=== PATIENT | male | born 1955 | race African-American/Black ===

== ENCOUNTER 2017-03-30 10:19 | Emergency (ER) | payer MEDICAID ==
[~2017-03-30] VITALS: Ht 175.3 cm; Wt 82.0 kg
[2017-03-30 10:39] VITALS: BP 121/79
== END 2017-03-30 17:14 | disposition left against medical advice (07) ==
LOC: ER 10:19
DX: M54.5 Low back pain (principal); Z53.21 Procedure and treatment not carried out due to patient leaving prior to being seen by health care provider
CPT/HCPCS: Z7610 ×2

== ENCOUNTER 2017-04-02 08:59 | Emergency (ER) | payer MEDICAID ==
[~2017-04-02] VITALS: Ht 175.3 cm; Wt 83.0 kg
[2017-04-02] MEDS ORDERED: NAP5EC PO (09:24)
[2017-04-02] MEDS ORDERED: ATEN50TA PO (09:25)
[2017-04-02] MEDS ORDERED: METF500T4 PO (09:25)
[2017-04-02] MEDS ORDERED: HYDR25TA PO (09:25)
[2017-04-02 10:28] VITALS: BP 119/72
[2017-04-02] MEDS ORDERED: TRAMADOL 50MG TABLET PO ONE (10:30)
[2017-04-02] MEDS ORDERED: KETOROLAC 60MG/2ML VIAL IM ONE (10:30)
== END 2017-04-02 10:40 | disposition home or self-care (01) ==
LOC: ER 08:59
DX: G89.29 Other chronic pain (principal); M54.5 Low back pain; F17.210 Nicotine dependence, cigarettes, uncomplicated; Z88.0 Allergy status to penicillin; Z88.8 Allergy status to other drugs, medicaments and biological substances; Z98.890 Other specified postprocedural states; Z71.6 Tobacco abuse counseling
CPT/HCPCS: 96372; 99283; 99406; J1885; Z7610

== ENCOUNTER 2017-06-06 12:45 | Emergency (ER) | payer MEDICAID ==
[~2017-06-06] VITALS: Ht 175.3 cm; Wt 80.0 kg
[~2017-06-06 12:45] MED LIST: ATEN50TA PO; HYDR25TA PO; METF500T4 PO; NAP5EC PO
[2017-06-06] MEDS ORDERED: ACETAMINOPHEN 325MG TABLET PO ONE (15:30)
[2017-06-06 15:43] VITALS: BP 145/82
== END 2017-06-06 15:50 | disposition home or self-care (01) ==
LOC: ER 12:58
DX: G89.29 Other chronic pain (principal); M25.562 Pain in left knee; I10 Essential (primary) hypertension; E11.9 Type 2 diabetes mellitus without complications; F17.200 Nicotine dependence, unspecified, uncomplicated; Z88.8 Allergy status to other drugs, medicaments and biological substances
CPT/HCPCS: 99283; J7030; Z7610

== ENCOUNTER 2017-10-22 11:58 | Emergency (ER) | payer MEDICAID ==
[~2017-10-22] VITALS: Ht 180.3 cm; Wt 79.0 kg
[~2017-10-22 11:58] MED LIST changes: -ATEN50TA PO; -NAP5EC PO
[2017-10-22 14:30] VITALS: BP 146/86
[2017-10-22] MEDS ORDERED: IBUPROFEN 800MG TABLET PO ONE (14:30)
== END 2017-10-22 15:19 | disposition home or self-care (01) ==
LOC: ER 12:27
DX: M17.12 Unilateral primary osteoarthritis, left knee (principal); G89.29 Other chronic pain; E11.9 Type 2 diabetes mellitus without complications; I10 Essential (primary) hypertension; Z79.84 Long term (current) use of oral hypoglycemic drugs; Z79.899 Other long term (current) drug therapy; Z88.0 Allergy status to penicillin
CPT/HCPCS: 73562; 99284

== ENCOUNTER 2017-11-27 11:01 | Emergency (ER) | payer MEDICAID ==
[~2017-11-27] VITALS: Ht 180.3 cm; Wt 79.0 kg
[2017-11-27] MEDS ORDERED: ACETAMINOPHEN 325MG TABLET PO ONE (12:30)
[2017-11-27] MEDS ORDERED: KETOROLAC 60MG/2ML VIAL IM ONE (12:30)
[2017-11-27 13:37] VITALS: BP 157/99
== END 2017-11-27 15:29 | disposition home or self-care (01) ==
LOC: ER 15:07
DX: M17.12 Unilateral primary osteoarthritis, left knee (principal); I10 Essential (primary) hypertension; E11.9 Type 2 diabetes mellitus without complications; F17.200 Nicotine dependence, unspecified, uncomplicated; Z88.0 Allergy status to penicillin; Z88.8 Allergy status to other drugs, medicaments and biological substances; Z79.84 Long term (current) use of oral hypoglycemic drugs
CPT/HCPCS: 73562; 82962; 96372; 99284; J1885

== ENCOUNTER 2018-01-09 11:43 | Emergency (ER) | payer MEDICAID ==
[~2018-01-09] VITALS: Ht 180.3 cm; Wt 77.0 kg
[~2018-01-09 11:43] MED LIST changes: -METF500T4 PO; +METF500T6 PO
[2018-01-09 12:34] LABS: EOSINOPHILS % 9.5 % (0.0-5.0); HEMATOCRIT. 40.6 % (42.0-52.0); HEMOGLOBIN. 13.2 g/dL (14.0-18.0); LYMPHOCYTES % 37.4 % (20.0-50.0); MEAN CORPUSCULAR HEMOGLOBIN 28.2 pg (28.0-32.0); MEAN CORPUSCULAR VOLUME 86.9 fL (80.0-94.0); MEAN PLATELET VOLUME 8.2 fl (7.4-10.4); MONOCYTES % 10.5 % (2.0-8.0); NEUTROPHILS % 41.6 % (40.0-76.0); PLATELET 249 x1000/uL (130-400); RED BLOOD CELL COUNT 4.67 mill/uL (4.7-6.1); RED CELL DISTRIBUTION WIDTH 14.7 % (11.6-14.6)
[2018-01-09 12:36] LABS: CHLORIDE 102 mEq/L (98-107)
[2018-01-09 12:39] LABS: PARTIAL THROMBOPLASTIN TIME 24.1 sec (23.4-31.0); PROTHROMBIN TIME 10.3 sec (9.4-11.6)
[2018-01-09 12:47] LABS: CREATINE KINASE 303 IU/L (39-308)
[2018-01-09 12:50] LABS: CREATINE KINASE MB FRACTION 3.5 ng/mL (0.5-3.6)
[2018-01-09 13:01] LABS: CLARITY URINE CLEAR (CLEAR); COLOR URINE DARK YELLOW (YELLOW); KETONES URINE TRACE (NEGATIVE); LEUKOCYTE ESTERASE URINE NEGATIVE (NEGATIVE); NITRITE URINE NEGATIVE (NEGATIVE); OCCULT BLOOD URINE NEGATIVE (NEGATIVE); PH URINE 6.5 (4.5-8.0); PROTEIN URINE NEGATIVE (NEGATIVE); SPECIFIC GRAVITY URINE 1.021 (1.005-1.030)
[2018-01-09] MEDS ORDERED: SODIUM CHLORIDE 0.9% 1,000 ML IV ONE (13:26)
[2018-01-09] MEDS ORDERED: MORPHINE SULFATE 4 MG/ML CPJ (NOT FOR IM USE) IV STA (13:26)
[2018-01-09] MEDS ORDERED: ONDANSETRON HCL 4MG/2ML VIAL IV STA (13:26)
[2018-01-09 13:40] LABS: *BARBITURATES SCREEN URINE NEGATIVE (NEGATIVE); *BENZODIAZEPINES SCREEN URINE NEGATIVE (NEGATIVE); *COCAINE SCREEN URINE NEGATIVE (NEGATIVE); METHADONE URINE SCREEN NEGATIVE (NEGATIVE); OPIATES URINE SCREEN NEGATIVE (NEGATIVE)
[2018-01-09 13:41] LABS: *AMPHETAMINES SCREEN URINE NEGATIVE (NEGATIVE); CANNABINOID URINE SCREEN NEGATIVE (NEGATIVE); PHENCYCLIDINE URINE SCREEN NEGATIVE (NEGATIVE)
[2018-01-09 16:38] VITALS: BP 134/85
== END 2018-01-09 16:47 | disposition home or self-care (01) ==
LOC: ER 13:44
DX: R51 Headache (principal); R42 Dizziness and giddiness; R11.0 Nausea; E11.9 Type 2 diabetes mellitus without complications; I10 Essential (primary) hypertension; R56.9 Unspecified convulsions; R06.02 Shortness of breath; Z88.0 Allergy status to penicillin; Z88.6 Allergy status to analgesic agent; Z86.73 Personal history of transient ischemic attack (TIA), and cerebral infarction without residual deficits
CPT/HCPCS: 36415; 70450; 80053; 80305; 81003; 82550; 82553; 82962; 83690; 83880; 84484; 85025; 85610; 85730; 93005; 96361; 96374; 96375; 99285; J2270; J2405; J7030

== ENCOUNTER 2018-01-22 12:16 | Emergency (ER) | payer MEDICAID ==
[~2018-01-22] VITALS: Ht 180.3 cm; Wt 79.0 kg
[2018-01-22 12:22] VITALS: BP 146/92
== END 2018-01-22 15:35 | disposition left against medical advice (07) ==
LOC: ER 12:16
DX: Z53.21 Procedure and treatment not carried out due to patient leaving prior to being seen by health care provider (principal); E11.9 Type 2 diabetes mellitus without complications; I10 Essential (primary) hypertension; R56.9 Unspecified convulsions; F17.200 Nicotine dependence, unspecified, uncomplicated; Z88.0 Allergy status to penicillin; Z88.8 Allergy status to other drugs, medicaments and biological substances; Z86.73 Personal history of transient ischemic attack (TIA), and cerebral infarction without residual deficits; Z98.890 Other specified postprocedural states

== ENCOUNTER 2018-02-03 13:18 | Emergency (ER) | payer MEDICAID ==
[~2018-02-03] VITALS: Ht 180.3 cm; Wt 79.0 kg
[2018-02-03] MEDS ORDERED: ACETAMINOPHEN 325MG TABLET PO ONE ×2 (15:00→15:45)
[2018-02-03] MEDS ORDERED: LIDOCAINE HCL/EPINEPHRINE 1%-EPI 1:100,000 20 ML VIAL INFIL ONE (15:00)
[2018-02-03 15:51] LABS: CLARITY URINE CLEAR (CLEAR); COLOR URINE DARK YELLOW (YELLOW); KETONES URINE NEGATIVE (NEGATIVE); LEUKOCYTE ESTERASE URINE NEGATIVE (NEGATIVE); NITRITE URINE NEGATIVE (NEGATIVE); OCCULT BLOOD URINE NEGATIVE (NEGATIVE); PH URINE 5.5 (4.5-8.0); PROTEIN URINE NEGATIVE (NEGATIVE); SPECIFIC GRAVITY URINE 1.024 (1.005-1.030)
[2018-02-03 16:12] VITALS: BP 120/80
== END 2018-02-03 16:14 | disposition home or self-care (01) ==
LOC: ER 14:50
DX: G89.29 Other chronic pain (principal); M54.5 Low back pain; R35.0 Frequency of micturition; I10 Essential (primary) hypertension; F17.200 Nicotine dependence, unspecified, uncomplicated; E11.9 Type 2 diabetes mellitus without complications; Z79.84 Long term (current) use of oral hypoglycemic drugs; Z86.73 Personal history of transient ischemic attack (TIA), and cerebral infarction without residual deficits; Z88.0 Allergy status to penicillin; Z88.8 Allergy status to other drugs, medicaments and biological substances
CPT/HCPCS: 81003; 99283; J3490

== ENCOUNTER 2018-02-04 09:40 | Emergency (ER) | payer MEDICAID ==
[~2018-02-04] VITALS: Ht 177.8 cm; Wt 79.0 kg
[2018-02-04] MEDS ORDERED: HYDROCODONE/ACETAMINOPHEN 5/325MG TABLET PO ONE (12:15)
[2018-02-04 12:48] VITALS: BP 128/81
== END 2018-02-04 12:49 | disposition home or self-care (01) ==
LOC: ER 09:40
DX: G89.29 Other chronic pain (principal); M54.5 Low back pain; E11.9 Type 2 diabetes mellitus without complications; I10 Essential (primary) hypertension; F17.200 Nicotine dependence, unspecified, uncomplicated; F19.10 Other psychoactive substance abuse, uncomplicated; Z86.73 Personal history of transient ischemic attack (TIA), and cerebral infarction without residual deficits; Z88.0 Allergy status to penicillin; Z88.8 Allergy status to other drugs, medicaments and biological substances
CPT/HCPCS: 99283

== ENCOUNTER 2018-04-09 10:50 | Emergency (ER) | payer MEDICAID ==
[~2018-04-09] VITALS: Ht 180.3 cm; Wt 79.0 kg
[~2018-04-09 10:50] MED LIST changes: +METF-414 PO; -METF500T6 PO
[2018-04-09] MEDS ORDERED: SODIUM CHLORIDE 0.9% 1,000 ML IV ONE (11:16)
[2018-04-09] MEDS ORDERED: MECLIZINE 25MG TABLET PO ONE (11:30)
[2018-04-09 11:41] LABS: BASOPHILS % 0.9 % (0.0-2.0); EOSINOPHILS % 7.8 % (0.0-5.0); HEMATOCRIT. 42.4 % (42.0-52.0); HEMOGLOBIN. 13.9 g/dL (14.0-18.0); LYMPHOCYTES % 30.1 % (20.0-50.0); MEAN PLATELET VOLUME 8.7 fl (7.4-10.4); MONOCYTES % 8.7 % (2.0-8.0); NEUTROPHILS % 52.5 % (40.0-76.0); PLATELET 206 x1000/uL (130-400); RED BLOOD CELL COUNT 4.98 mill/uL (4.7-6.1); RED CELL DISTRIBUTION WIDTH 14.2 % (11.6-14.6)
[2018-04-09 11:47] LABS: CHLORIDE 103 mEq/L (98-107)
[2018-04-09 11:52] LABS: PARTIAL THROMBOPLASTIN TIME 24.7 sec (23.4-31.0); PROTHROMBIN TIME 9.8 sec (9.1-11.1)
[2018-04-09 12:55] VITALS: BP 140/89
== END 2018-04-09 12:57 | disposition home or self-care (01) ==
LOC: ER 10:50
DX: H81.10 Benign paroxysmal vertigo, unspecified ear (principal); E11.9 Type 2 diabetes mellitus without complications; I10 Essential (primary) hypertension; F17.200 Nicotine dependence, unspecified, uncomplicated; Z86.73 Personal history of transient ischemic attack (TIA), and cerebral infarction without residual deficits; Z88.0 Allergy status to penicillin; Z79.899 Other long term (current) drug therapy
CPT/HCPCS: 36415; 70450; 71045; 80053; 84484; 85025; 85610; 85730; 93005; 96360; 99285; J7030; J8597

== ENCOUNTER 2018-05-09 11:15 | Inpatient (IN) | payer MEDICAID ==
[~2018-05-09] VITALS: Ht 180.3 cm; Wt 64.9 kg
[2018-05-09] MEDS ORDERED: SODIUM CHLORIDE 0.9% 1,000 ML IV ONE (11:41)
[2018-05-09] MEDS ORDERED: ONDANSETRON HCL 4MG/2ML INJ IV STA (11:41)
[2018-05-09] MEDS ORDERED: MORPHINE SULFATE 4 MG/ML CPJ (NOT FOR IM USE) IV STA (11:41)
[2018-05-09] MEDS ORDERED: ASPIRIN 81MG TABLET PO ONE (11:45)
[2018-05-09] MEDS ORDERED: NITROGLYCERIN OINT 1GM/INCH UDPKT TD ONE (11:45)
[2018-05-09] MEDS ORDERED: NITROGLYCERIN 0.4MG TABLET SL SL PRN (11:45)
[2018-05-09 12:25] LABS: BASOPHILS % 0.9 % (0.0-2.0); EOSINOPHILS % 9.2 % (0.0-5.0); HEMATOCRIT. 39.7 % (42.0-52.0); HEMOGLOBIN. 12.9 g/dL (14.0-18.0); LYMPHOCYTES % 37.3 % (20.0-50.0); MEAN CORPUSCULAR HEMOGLOBIN 27.6 pg (28.0-32.0); MEAN PLATELET VOLUME 8.6 fl (7.4-10.4); MONOCYTES % 11.4 % (2.0-8.0); NEUTROPHILS % 41.2 % (40.0-76.0); PLATELET 205 x1000/uL (130-400); RED BLOOD CELL COUNT 4.67 mill/uL (4.7-6.1)
[2018-05-09 12:34] LABS: PARTIAL THROMBOPLASTIN TIME 24.5 sec (23.4-31.0); PROTHROMBIN TIME 9.9 sec (9.1-11.1)
[2018-05-09 12:37] LABS: CHLORIDE 104 mEq/L (98-107)
[2018-05-09] MEDS ORDERED: ACETAMINOPHEN 325MG TABLET PO PRN (15:45)
[2018-05-09] MEDS ORDERED: LORAZEPAM 2MG/ML CPJ IV PRN (15:45)
[2018-05-09] MEDS ORDERED: MAGNESIUM/ALUMINUM HYDROXIDE/SIMETHICONE 30ML UDC PO PRN (15:45)
[2018-05-09] MEDS ORDERED: IPRATROPIUM/ALBUTEROL 0.5-3(2.5)MG/3ML NEB INH PRN (15:45)
[2018-05-09] MEDS ORDERED: DOCUSATE SODIUM 100MG CAPSULE PO PRN (15:45)
[2018-05-09] MEDS ORDERED: POTASSIUM CHLORIDE 20MEQ TABLET SR PO SCH (16:00)
[2018-05-09] MEDS ORDERED: POTASSIUM CHLORIDE 20MEQ TABLET SR PO ONE (16:00)
[2018-05-09 16:10] LABS: PHOSPHORUS 2.8 mg/dL (2.5-4.9)
[2018-05-09 17:10] VITALS: BP 129/84
[2018-05-09] MEDS ORDERED: MELA10CA MT (17:10)
[2018-05-09] MEDS ORDERED: QUET25TA MT (17:10)
[2018-05-09] MEDS ORDERED: DIVA500T3 MT (17:10)
[2018-05-09] MEDS ORDERED: DEXTROSE 50% WATER 50ML SYRINGE IV PRN (18:30)
[2018-05-09 19:10] VITALS: BP 129/84
[2018-05-09] MEDS: HYDROCODONE/ACETAMINOPHEN 5/325MG TABLET PO PRN (19:43)
[2018-05-09 20:04] VITALS: BP 116/72
[2018-05-09] MEDS: MORPHINE SULFATE 4 MG/ML CPJ (NOT FOR IM USE) IV PRN (21:00)
[2018-05-09] MEDS: QUETIAPINE FUMARATE 25MG TABLET PO SCH (21:00)
[2018-05-09] MEDS: INSULIN LISPRO 100 UNITS/ML SUBCUT SCH (21:00)
[2018-05-09] MEDS: BLOOD SUGAR DIAGNOSTIC STRIP TEST SCH (21:00)
[2018-05-10] VITALS (7 sets, daily range): BP systolic 118–165; BP diastolic 56–102
[2018-05-10] MEDS: MORPHINE SULFATE 4 MG/ML CPJ (NOT FOR IM USE) IV PRN ×3 (05:22→17:00)
[2018-05-10] MEDS: BLOOD SUGAR DIAGNOSTIC STRIP TEST SCH ×4 (07:40→20:47)
[2018-05-10] MEDS: INSULIN LISPRO 100 UNITS/ML SUBCUT SCH ×4 (08:10→20:53)
[2018-05-10] MEDS: HYDROCHLOROTHIAZIDE 25MG TABLET PO SCH (08:44)
[2018-05-10] MEDS: ASPIRIN 81MG EC TABLET PO SCH (08:45)
[2018-05-10] MEDS ORDERED: ASPIRIN 81MG EC TABLET PO SCH (09:00)
[2018-05-10] MEDS ORDERED: MEDICATION NOT ON FORMULARY EA (Divalproex Sodium (Depakote) 500 MG) MT SCH (09:00)
[2018-05-10] MEDS ORDERED: HYDROCHLOROTHIAZIDE 25MG TABLET PO SCH (09:00)
[2018-05-10] MEDS: DIVALPROEX SODIUM 250MG DR TABLET PO SCH ×2 (09:56→18:14)
[2018-05-10] MEDS ORDERED: NA PHOS,M-B/NA PHOS,DI-BA ENEMA 118ML PR NR (12:15)
[2018-05-10] MEDS: AMLODIPINE 2.5MG TABLET PO SCH ×2 (12:30→20:47)
[2018-05-10] MEDS ORDERED: POTASSIUM CHLORIDE 20MEQ TABLET SR PO NR (12:30)
[2018-05-10] MEDS: DOCUSATE SODIUM 100MG CAPSULE PO SCH ×2 (12:30→18:14)
[2018-05-10] MEDS ORDERED: BISACODYL 10MG SUPP PR PRN (14:15)
[2018-05-10] MEDS ORDERED: MAGNESIUM HYDROXIDE 400MG/5ML 30ML UDC PO PRN (14:15)
[2018-05-10] MEDS ORDERED: BISACODYL 5MG TABLET PO PRN (14:15)
[2018-05-10] MEDS ORDERED: DIATR MEGLU/DIATRIZOATE SOLN 30ML PO NR ×2 (15:15→16:30)
[2018-05-10] MEDS ORDERED: DIATR MEGLU/DIATRIZOATE SOLN 30ML PO ONE (15:15)
[2018-05-10] MEDS: CLONIDINE 0.1MG TABLET PO PRN (18:28)
[2018-05-10] MEDS: QUETIAPINE FUMARATE 25MG TABLET PO SCH (20:47)
[2018-05-11 03:57] VITALS: BP 173/105
[2018-05-11] MEDS: CLONIDINE 0.1MG TABLET PO PRN (03:59)
[2018-05-11] MEDS: MORPHINE SULFATE 4 MG/ML CPJ (NOT FOR IM USE) IV PRN ×5 (03:59→23:18)
[2018-05-11] MEDS: BLOOD SUGAR DIAGNOSTIC STRIP TEST SCH ×4 (07:40→20:54)
[2018-05-11 08:00] VITALS: BP 127/76
[2018-05-11] MEDS: INSULIN LISPRO 100 UNITS/ML SUBCUT SCH ×4 (08:10→20:57)
[2018-05-11] MEDS: ASPIRIN 81MG EC TABLET PO SCH (09:00)
[2018-05-11] MEDS: HYDROCHLOROTHIAZIDE 25MG TABLET PO SCH (09:00)
[2018-05-11] MEDS: DOCUSATE SODIUM 100MG CAPSULE PO SCH ×2 (09:00→17:26)
[2018-05-11] MEDS: AMLODIPINE 2.5MG TABLET PO SCH ×2 (09:00→20:54)
[2018-05-11] MEDS: DIVALPROEX SODIUM 250MG DR TABLET PO SCH ×2 (09:01→17:26)
[2018-05-11 12:00] VITALS: BP 136/79
[2018-05-11 12:04] LABS: *AMPHETAMINES SCREEN URINE NEGATIVE (NEGATIVE); *BARBITURATES SCREEN URINE NEGATIVE (NEGATIVE); *BENZODIAZEPINES SCREEN URINE NEGATIVE (NEGATIVE)
[2018-05-11 12:07] LABS: *COCAINE SCREEN URINE NEGATIVE (NEGATIVE); CANNABINOID URINE SCREEN NEGATIVE (NEGATIVE); METHADONE URINE SCREEN NEGATIVE (NEGATIVE); OPIATES URINE SCREEN PRESUMTIVE POSITIVE (NEGATIVE); PHENCYCLIDINE URINE SCREEN NEGATIVE (NEGATIVE)
[2018-05-11] MEDS ORDERED: LACTULOSE 20G/30ML UDC PO PRN (15:30)
[2018-05-11] MEDS ORDERED: REGADENOSON 0.4 MG/5 ML IV ONE (15:30)
[2018-05-11] MEDS ORDERED: NA PHOS,M-B/NA PHOS,DI-BA ENEMA 118ML PR NR (15:30)
[2018-05-11 16:00] VITALS: BP 137/90
[2018-05-11 16:39] LABS: CHLORIDE 100 mEq/L (98-107)
[2018-05-11 18:54] LABS: MEAN CORPUSCULAR HEMOGLOBIN 28.1 pg (28.0-32.0); MEAN CORPUSCULAR VOLUME 86.1 fL (80.0-94.0); PLATELET 233 x1000/uL (130-400); RED BLOOD CELL COUNT 5.81 mill/uL (4.7-6.1); RED CELL DISTRIBUTION WIDTH 15.2 % (11.6-14.6)
[2018-05-11 19:01] LABS: HEMOGLOBIN. 16.3 g/dL (14.0-18.0)
[2018-05-11 19:46] LABS: PLATELET ESTIMATE NORMAL
[2018-05-11 20:02] VITALS: BP 161/98
[2018-05-11] MEDS: QUETIAPINE FUMARATE 25MG TABLET PO SCH (20:54)
[2018-05-11] MEDS: DEXT 5%/0.45% NACL 1000ML 1,000 ML IV SCH (20:54)
[2018-05-11] MEDS: ENOXAPARIN 40MG/0.4ML SYR SUBCUT SCH (23:21)
[2018-05-12 00:01] VITALS: BP 124/84
[2018-05-12] MEDS: MORPHINE SULFATE 4 MG/ML CPJ (NOT FOR IM USE) IV PRN ×3 (03:11→21:13)
[2018-05-12 04:00] VITALS: BP 118/83
[2018-05-12] MEDS: DEXT 5%/0.45% NACL 1000ML 1,000 ML IV SCH ×3 (05:09→23:28)
[2018-05-12 08:00] VITALS: BP 150/104
[2018-05-12] MEDS: INSULIN LISPRO 100 UNITS/ML SUBCUT SCH ×4 (08:10→20:54)
[2018-05-12 08:18] LABS: HEMATOCRIT. 46.8 % (42.0-52.0); HEMOGLOBIN. 15.2 g/dL (14.0-18.0); MEAN CORPUSCULAR HEMOGLOBIN 27.5 pg (28.0-32.0); MEAN CORPUSCULAR VOLUME 84.8 fL (80.0-94.0); MEAN PLATELET VOLUME 8.2 fl (7.4-10.4); PLATELET 229 x1000/uL (130-400); RED BLOOD CELL COUNT 5.52 mill/uL (4.7-6.1); RED CELL DISTRIBUTION WIDTH 15.4 % (11.6-14.6)
[2018-05-12] MEDS: BLOOD SUGAR DIAGNOSTIC STRIP TEST SCH ×4 (08:24→20:54)
[2018-05-12] MEDS ORDERED: REGADENOSON 0.4 MG/5 ML IV ONE (08:29)
[2018-05-12 08:52] LABS: CHLORIDE 99 mEq/L (98-107)
[2018-05-12] MEDS: HYDROCHLOROTHIAZIDE 25MG TABLET PO SCH (09:42)
[2018-05-12] MEDS: AMLODIPINE 2.5MG TABLET PO SCH (09:42)
[2018-05-12] MEDS: ASPIRIN 81MG EC TABLET PO SCH (09:42)
[2018-05-12] MEDS: DOCUSATE SODIUM 100MG CAPSULE PO SCH ×2 (09:42→18:22)
[2018-05-12] MEDS: HYDROCODONE/ACETAMINOPHEN 5/325MG TABLET PO PRN ×2 (09:42→18:22)
[2018-05-12] MEDS: DIVALPROEX SODIUM 250MG DR TABLET PO SCH ×2 (09:43→18:21)
[2018-05-12 12:00] VITALS: BP 136/82
[2018-05-12 13:30] LABS: PLATELET ESTIMATE NORMAL
[2018-05-12] MEDS: LOSARTAN POTASSIUM 25 MG TABLET PO SCH (15:06)
[2018-05-12 16:00] VITALS: BP 141/103
[2018-05-12 20:00] VITALS: BP 146/98
[2018-05-12] MEDS: QUETIAPINE FUMARATE 25MG TABLET PO SCH (21:09)
[2018-05-12] MEDS: AMLODIPINE 5MG TABLET PO SCH (21:10)
[2018-05-12] MEDS: ENOXAPARIN 40MG/0.4ML SYR SUBCUT SCH (21:11)
[2018-05-12] MEDS: ONDANSETRON HCL 4MG/2ML INJ IV PRN (21:52)
[2018-05-13] VITALS (9 sets, daily range): BP systolic 124–135; BP diastolic 84–97
[2018-05-13 07:05] LABS: HEMATOCRIT. 45.1 % (42.0-52.0); HEMOGLOBIN. 14.8 g/dL (14.0-18.0); MEAN CORPUSCULAR HEMOGLOBIN 27.9 pg (28.0-32.0); MEAN CORPUSCULAR VOLUME 85.2 fL (80.0-94.0); MEAN PLATELET VOLUME 8.6 fl (7.4-10.4); PLATELET 235 x1000/uL (130-400); RED BLOOD CELL COUNT 5.29 mill/uL (4.7-6.1); RED CELL DISTRIBUTION WIDTH 15.2 % (11.6-14.6)
[2018-05-13 07:19] LABS: CHLORIDE 96 mEq/L (98-107)
[2018-05-13] MEDS: BLOOD SUGAR DIAGNOSTIC STRIP TEST SCH ×4 (07:27→21:17)
[2018-05-13] MEDS: INSULIN LISPRO 100 UNITS/ML SUBCUT SCH ×4 (07:29→21:00)
[2018-05-13] MEDS: ONDANSETRON HCL 4MG/2ML INJ IV PRN ×3 (09:25→21:20)
[2018-05-13] MEDS: HYDROCHLOROTHIAZIDE 25MG TABLET PO SCH (10:17)
[2018-05-13] MEDS: DOCUSATE SODIUM 100MG CAPSULE PO SCH ×2 (10:18→17:15)
[2018-05-13] MEDS: DIVALPROEX SODIUM 250MG DR TABLET PO SCH ×3 (10:18→17:53)
[2018-05-13] MEDS: ASPIRIN 81MG EC TABLET PO SCH (10:18)
[2018-05-13] MEDS: AMLODIPINE 5MG TABLET PO SCH ×2 (10:18→21:17)
[2018-05-13] MEDS: LOSARTAN POTASSIUM 25 MG TABLET PO SCH (10:18)
[2018-05-13] MEDS: DEXT 5%/0.45% NACL 1000ML 1,000 ML IV SCH ×2 (10:30→20:38)
[2018-05-13] MEDS: MORPHINE SULFATE 4 MG/ML CPJ (NOT FOR IM USE) IV PRN ×3 (11:28→22:51)
[2018-05-13 12:15] LABS: PLATELET ESTIMATE NORMAL
[2018-05-13] MEDS ORDERED: LEVOFLOXACIN 750MG PREMIX 150 ML IV SCH (16:30)
[2018-05-13] MEDS: METRONIDAZOLE 500 MG PREMIX 100 ML IV SCH (18:54)
[2018-05-13] MEDS ORDERED: ONDANSETRON HCL 4MG/2ML INJ IV NR (19:00)
[2018-05-13] MEDS: QUETIAPINE FUMARATE 25MG TABLET PO SCH (21:17)
[2018-05-13] MEDS: ENOXAPARIN 40MG/0.4ML SYR SUBCUT SCH (22:52)
[2018-05-14] VITALS (12 sets, daily range): BP systolic 105–150; BP diastolic 52–91
[2018-05-14] MEDS: METRONIDAZOLE 500 MG PREMIX 100 ML IV SCH ×3 (01:06→18:41)
[2018-05-14] MEDS ORDERED: LORAZEPAM 2MG/ML CPJ IV PRN (01:30)
[2018-05-14] MEDS: DEXT 5%/0.45% NACL 1000ML 1,000 ML IV SCH ×2 (06:29→18:41)
[2018-05-14] MEDS: MORPHINE SULFATE 4 MG/ML CPJ (NOT FOR IM USE) IV PRN ×3 (06:55→21:56)
[2018-05-14 07:27] LABS: HEMATOCRIT. 43.9 % (42.0-52.0); HEMOGLOBIN. 14.6 g/dL (14.0-18.0); MEAN CORPUSCULAR HEMOGLOBIN 28.2 pg (28.0-32.0); MEAN CORPUSCULAR VOLUME 84.8 fL (80.0-94.0); PLATELET 256 x1000/uL (130-400); RED BLOOD CELL COUNT 5.18 mill/uL (4.7-6.1); RED CELL DISTRIBUTION WIDTH 14.8 % (11.6-14.6)
[2018-05-14] MEDS: BLOOD SUGAR DIAGNOSTIC STRIP TEST SCH ×4 (07:36→21:56)
[2018-05-14] MEDS: LOSARTAN POTASSIUM 25 MG TABLET PO SCH (08:03)
[2018-05-14] MEDS: AMLODIPINE 5MG TABLET PO SCH ×2 (08:03→21:55)
[2018-05-14] MEDS: ASPIRIN 81MG EC TABLET PO SCH (08:09)
[2018-05-14] MEDS: DIVALPROEX SODIUM 250MG DR TABLET PO SCH ×2 (08:09→16:37)
[2018-05-14] MEDS: DOCUSATE SODIUM 100MG CAPSULE PO SCH ×2 (08:09→16:37)
[2018-05-14] MEDS: HYDROCHLOROTHIAZIDE 25MG TABLET PO SCH (08:20)
[2018-05-14] MEDS: INSULIN LISPRO 100 UNITS/ML SUBCUT SCH ×4 (08:20→22:06)
[2018-05-14] MEDS ORDERED: MORPHINE SULFATE 4 MG/ML CPJ (NOT FOR IM USE) IV PRN (10:15)
[2018-05-14 13:43] LABS: PLATELET ESTIMATE NORMAL
[2018-05-14] MEDS: QUETIAPINE FUMARATE 25MG TABLET PO SCH (21:55)
[2018-05-15] VITALS (9 sets, daily range): BP systolic 116–156; BP diastolic 68–148
[2018-05-15] MEDS: ENOXAPARIN 40MG/0.4ML SYR SUBCUT SCH (00:04)
[2018-05-15] MEDS: METRONIDAZOLE 500 MG PREMIX 100 ML IV SCH ×4 (00:04→17:46)
[2018-05-15] MEDS: DEXT 5%/0.45% NACL 1000ML 1,000 ML IV SCH ×3 (02:30→22:30)
[2018-05-15] MEDS: MORPHINE SULFATE 4 MG/ML CPJ (NOT FOR IM USE) IV PRN ×6 (03:18→23:28)
[2018-05-15] MEDS: BLOOD SUGAR DIAGNOSTIC STRIP TEST SCH ×4 (07:37→21:00)
[2018-05-15] MEDS: INSULIN LISPRO 100 UNITS/ML SUBCUT SCH ×4 (07:37→21:00)
[2018-05-15 07:45] LABS: HEMATOCRIT. 45.8 % (42.0-52.0); HEMOGLOBIN. 15.2 g/dL (14.0-18.0); MEAN CORPUSCULAR VOLUME 84.5 fL (80.0-94.0); PLATELET 230 x1000/uL (130-400); RED BLOOD CELL COUNT 5.42 mill/uL (4.7-6.1); RED CELL DISTRIBUTION WIDTH 14.7 % (11.6-14.6)
[2018-05-15] MEDS: ASPIRIN 81MG EC TABLET PO SCH (08:14)
[2018-05-15] MEDS: DOCUSATE SODIUM 100MG CAPSULE PO SCH ×2 (08:14→16:36)
[2018-05-15] MEDS: HYDROCHLOROTHIAZIDE 25MG TABLET PO SCH (08:14)
[2018-05-15] MEDS: LOSARTAN POTASSIUM 25 MG TABLET PO SCH (08:14)
[2018-05-15] MEDS: AMLODIPINE 5MG TABLET PO SCH ×2 (08:14→21:00)
[2018-05-15] MEDS: DIVALPROEX SODIUM 250MG DR TABLET PO SCH ×2 (08:14→16:36)
[2018-05-15 08:16] LABS: CHLORIDE 94 mEq/L (98-107)
[2018-05-15] MEDS ORDERED: POTASSIUM CHLORIDE 20MEQ TABLET SR PO NR (14:45)
[2018-05-15] MEDS: ONDANSETRON HCL 4MG/2ML INJ IV PRN ×2 (15:36→22:47)
[2018-05-15] MEDS: LEVOFLOXACIN 750MG PREMIX 150 ML IV SCH (16:49)
[2018-05-15] MEDS ORDERED: CEFOXITIN SODIUM 2 G in DEXT 5% WATER 100 ML IV STA (18:32)
[2018-05-15] MEDS ORDERED: BUPIVACAINE HCL 0.5% (5MG/ML) 50ML ONE (19:09)
[2018-05-15] MEDS ORDERED: LIDOCAINE HCL/PF 1% 10 MG/ML 5ML VIAL ONE (19:10)
[2018-05-15] MEDS ORDERED: FENTANYL CITRATE/PF 50MCG/ML 2ML VIAL ONE (19:11)
[2018-05-15] MEDS ORDERED: MIDAZOLAM HCL 2 MG/2 ML VIAL ONE (19:11)
[2018-05-15] MEDS ORDERED: PROPOFOL 200MG/20ML VIAL IV ONE (19:11)
[2018-05-15] MEDS ORDERED: ROCURONIUM BROMIDE 10MG/ML VIAL 5ML IV ONE ×2 (19:12→20:49)
[2018-05-15] MEDS ORDERED: LIDOCAINE HCL 1% 20ML VIAL (Pyxis) INJ ONE (19:12)
[2018-05-15] MEDS ORDERED: PHENYLEPHRINE HCL 10 MG/ML 1ML (IV VIAL) IV ONE (19:21)
[2018-05-15] MEDS ORDERED: BUPIVACAINE HCL/PF 0.5% (5MG/ML) 10ML ONE (19:22)
[2018-05-15] MEDS ORDERED: SODIUM CHLORIDE 0.9% 1,000 ML ONE (19:23)
[2018-05-15] MEDS ORDERED: NORMAL SALINE 0.9% 10 ML SYR ONE (19:23)
[2018-05-15] MEDS ORDERED: SUCCINYLCHOLINE CHLORIDE 200MG/10ML IV ONE ×2 (19:32→19:34)
[2018-05-15] MEDS ORDERED: SKIN ADHESIVE 0.7 GM EA TOP ONE (19:34)
[2018-05-15 20:07] LABS: PLATELET ESTIMATE NORMAL
[2018-05-15] MEDS: QUETIAPINE FUMARATE 25MG TABLET PO SCH (21:00)
[2018-05-15] MEDS ORDERED: NEOSTIGMINE METHYLSULFATE 1MG/ML 10 ML VIAL ONE (22:01)
[2018-05-15] MEDS ORDERED: GLYCOPYRROLATE 0.2 MG/ML 2ML VIAL ONE (22:02)
[2018-05-15] MEDS ORDERED: BISACODYL 10MG SUPP PR NR (22:30)
[2018-05-15] MEDS ORDERED: ONDANSETRON HCL 4MG/2ML INJ IV PRN (22:45)
[2018-05-16] VITALS (15 sets, daily range): BP systolic 94–152; BP diastolic 42–97
[2018-05-16] MEDS: METOCLOPRAMIDE HCL 10MG/2ML VIAL IV SCH ×5 (01:23→23:29)
[2018-05-16] MEDS: ENOXAPARIN 40MG/0.4ML SYR SUBCUT SCH ×2 (01:23→23:29)
[2018-05-16] MEDS: METRONIDAZOLE 500 MG PREMIX 100 ML IV SCH ×3 (01:23→17:01)
[2018-05-16] MEDS: DEXT 5%/0.45% NACL 1000ML 1,000 ML IV SCH ×2 (01:24→18:15)
[2018-05-16] MEDS: MORPHINE SULFATE 4 MG/ML CPJ (NOT FOR IM USE) IV PRN ×8 (02:06→23:29)
[2018-05-16] MEDS: BLOOD SUGAR DIAGNOSTIC STRIP TEST SCH ×4 (07:02→20:58)
[2018-05-16 07:11] LABS: HEMATOCRIT. 46.2 % (42.0-52.0); HEMOGLOBIN. 14.9 g/dL (14.0-18.0); MEAN CORPUSCULAR HEMOGLOBIN 27.2 pg (28.0-32.0); MEAN CORPUSCULAR VOLUME 84.6 fL (80.0-94.0); MEAN PLATELET VOLUME 8.6 fl (7.4-10.4); PLATELET 275 x1000/uL (130-400); RED BLOOD CELL COUNT 5.46 mill/uL (4.7-6.1); RED CELL DISTRIBUTION WIDTH 14.9 % (11.6-14.6)
[2018-05-16 07:48] LABS: CHLORIDE 103 mEq/L (98-107)
[2018-05-16] MEDS: INSULIN LISPRO 100 UNITS/ML SUBCUT SCH ×4 (08:14→21:00)
[2018-05-16] MEDS: ASPIRIN 81MG EC TABLET PO SCH (09:00)
[2018-05-16] MEDS: AMLODIPINE 5MG TABLET PO SCH ×2 (09:00→20:58)
[2018-05-16] MEDS: DIVALPROEX SODIUM 250MG DR TABLET PO SCH ×2 (09:00→17:00)
[2018-05-16] MEDS: DOCUSATE SODIUM 100MG CAPSULE PO SCH ×2 (09:00→17:01)
[2018-05-16] MEDS: HYDROCHLOROTHIAZIDE 25MG TABLET PO SCH (09:00)
[2018-05-16] MEDS: LOSARTAN POTASSIUM 25 MG TABLET PO SCH (09:00)
[2018-05-16] MEDS ORDERED: SODIUM CHLORIDE 0.9% 500 ML IV ONE (09:45)
[2018-05-16 10:10] LABS: PLATELET ESTIMATE NORMAL
[2018-05-16] MEDS: LEVOFLOXACIN 750MG PREMIX 150 ML IV SCH (17:02)
[2018-05-16] MEDS: QUETIAPINE FUMARATE 25MG TABLET PO SCH (20:58)
[2018-05-17] VITALS (11 sets, daily range): BP systolic 114–140; BP diastolic 65–97
[2018-05-17] MEDS: METRONIDAZOLE 500 MG PREMIX 100 ML IV SCH ×3 (01:16→17:08)
[2018-05-17] MEDS: MORPHINE SULFATE 4 MG/ML CPJ (NOT FOR IM USE) IV PRN ×6 (03:30→21:43)
[2018-05-17] MEDS: DEXT 5%/0.45% NACL 1000ML 1,000 ML IV SCH ×3 (04:58→21:00)
[2018-05-17] MEDS: METOCLOPRAMIDE HCL 10MG/2ML VIAL IV SCH ×3 (06:16→18:28)
[2018-05-17 06:22] LABS: HEMATOCRIT. 42.8 % (42.0-52.0); HEMOGLOBIN. 13.6 g/dL (14.0-18.0); MEAN CORPUSCULAR HEMOGLOBIN 27.2 pg (28.0-32.0); MEAN CORPUSCULAR VOLUME 85.5 fL (80.0-94.0); MEAN PLATELET VOLUME 8.8 fl (7.4-10.4); PLATELET 240 x1000/uL (130-400); RED CELL DISTRIBUTION WIDTH 14.8 % (11.6-14.6)
[2018-05-17 07:15] LABS: CHLORIDE 102 mEq/L (98-107)
[2018-05-17] MEDS: BLOOD SUGAR DIAGNOSTIC STRIP TEST SCH ×3 (07:30→18:00)
[2018-05-17] MEDS: INSULIN LISPRO 100 UNITS/ML SUBCUT SCH ×2 (08:00→18:00)
[2018-05-17] MEDS: HYDROCHLOROTHIAZIDE 25MG TABLET PO SCH (08:46)
[2018-05-17] MEDS: DIVALPROEX SODIUM 250MG DR TABLET PO SCH ×2 (08:46→17:07)
[2018-05-17] MEDS: AMLODIPINE 5MG TABLET PO SCH ×2 (08:46→21:00)
[2018-05-17] MEDS: DOCUSATE SODIUM 100MG CAPSULE PO SCH ×2 (08:47→17:08)
[2018-05-17] MEDS: LOSARTAN POTASSIUM 25 MG TABLET PO SCH (08:47)
[2018-05-17] MEDS: ASPIRIN 81MG EC TABLET PO SCH (08:47)
[2018-05-17 09:23] LABS: PLATELET ESTIMATE NORMAL
[2018-05-17] MEDS ORDERED: DEXTROSE 50% WATER 50ML SYRINGE IV PRN (09:30)
[2018-05-17] MEDS ORDERED: INSULIN LISPRO 100 UNITS/ML SUBCUT SCH ×2 (12:00→13:00)
[2018-05-17] MEDS ORDERED: BACITRACIN 50,000 UNITS/VIAL ONE (15:02)
[2018-05-17] MEDS: LEVOFLOXACIN 750MG PREMIX 150 ML IV SCH (17:08)
[2018-05-17] MEDS: QUETIAPINE FUMARATE 25MG TABLET PO SCH (21:42)
[2018-05-17] MEDS: TOTAL PARENTERAL NUTRITION 1,000 ML IV SCH (22:01)
[2018-05-17] MEDS: ENOXAPARIN 40MG/0.4ML SYR SUBCUT SCH (22:04)
[2018-05-18] VITALS (11 sets, daily range): BP systolic 116–142; BP diastolic 67–97
[2018-05-18] MEDS: METOCLOPRAMIDE HCL 10MG/2ML VIAL IV SCH ×4 (00:23→18:06)
[2018-05-18] MEDS: METRONIDAZOLE 500 MG PREMIX 100 ML IV SCH ×3 (00:23→18:06)
[2018-05-18] MEDS: MORPHINE SULFATE 4 MG/ML CPJ (NOT FOR IM USE) IV PRN ×6 (00:34→21:10)
[2018-05-18] MEDS: BLOOD SUGAR DIAGNOSTIC STRIP TEST SCH ×4 (00:51→18:08)
[2018-05-18] MEDS: INSULIN LISPRO 100 UNITS/ML SUBCUT SCH ×4 (05:18→18:23)
[2018-05-18 06:56] LABS: HEMATOCRIT. 39.2 % (42.0-52.0); HEMOGLOBIN. 12.7 g/dL (14.0-18.0); MEAN CORPUSCULAR HEMOGLOBIN 27.4 pg (28.0-32.0); MEAN CORPUSCULAR VOLUME 84.2 fL (80.0-94.0); MEAN PLATELET VOLUME 8.8 fl (7.4-10.4); PLATELET 237 x1000/uL (130-400); RED BLOOD CELL COUNT 4.65 mill/uL (4.7-6.1); RED CELL DISTRIBUTION WIDTH 14.8 % (11.6-14.6)
[2018-05-18 08:04] LABS: CHLORIDE 101 mEq/L (98-107)
[2018-05-18] MEDS: DOCUSATE SODIUM 100MG CAPSULE PO SCH ×2 (09:05→18:06)
[2018-05-18] MEDS: LOSARTAN POTASSIUM 25 MG TABLET PO SCH (09:06)
[2018-05-18] MEDS: ASPIRIN 81MG EC TABLET PO SCH (09:06)
[2018-05-18] MEDS: DIVALPROEX SODIUM 250MG DR TABLET PO SCH ×2 (09:06→18:07)
[2018-05-18] MEDS: HYDROCHLOROTHIAZIDE 25MG TABLET PO SCH (09:06)
[2018-05-18] MEDS: AMLODIPINE 5MG TABLET PO SCH ×2 (09:11→21:00)
[2018-05-18] MEDS: TOTAL PARENTERAL NUTRITION 1,000 ML IV SCH (10:20)
[2018-05-18 12:49] LABS: PLATELET ESTIMATE NORMAL
[2018-05-18 13:06] LABS: HIV SCREEN 4G Non Reactive (Non Reactive)
[2018-05-18] MEDS: LEVOFLOXACIN 750MG PREMIX 150 ML IV SCH (18:07)
[2018-05-18] MEDS ORDERED: TOTAL PARENTERAL NUTRITION 1,900 ML IV SCH (21:00)
[2018-05-18] MEDS: QUETIAPINE FUMARATE 25MG TABLET PO SCH (21:09)
[2018-05-19] VITALS (10 sets, daily range): BP systolic 126–155; BP diastolic 62–99
[2018-05-19] MEDS: ENOXAPARIN 40MG/0.4ML SYR SUBCUT SCH ×2 (00:25→23:33)
[2018-05-19] MEDS: METRONIDAZOLE 500 MG PREMIX 100 ML IV SCH ×3 (00:25→17:59)
[2018-05-19] MEDS: BLOOD SUGAR DIAGNOSTIC STRIP TEST SCH ×5 (00:25→23:33)
[2018-05-19] MEDS: METOCLOPRAMIDE HCL 10MG/2ML VIAL IV SCH ×5 (00:25→23:22)
[2018-05-19] MEDS ORDERED: BISACODYL 10MG SUPP PR SCH (01:00)
[2018-05-19] MEDS: MORPHINE SULFATE 4 MG/ML CPJ (NOT FOR IM USE) IV PRN ×5 (01:17→21:01)
[2018-05-19] MEDS: INSULIN LISPRO 100 UNITS/ML SUBCUT SCH ×5 (05:46→23:35)
[2018-05-19 07:59] LABS: HEMATOCRIT. 41.3 % (42.0-52.0); HEMOGLOBIN. 13.3 g/dL (14.0-18.0); MEAN CORPUSCULAR HEMOGLOBIN 27.2 pg (28.0-32.0); MEAN CORPUSCULAR VOLUME 84.4 fL (80.0-94.0); MEAN PLATELET VOLUME 8.7 fl (7.4-10.4); PLATELET 276 x1000/uL (130-400); RED BLOOD CELL COUNT 4.89 mill/uL (4.7-6.1); RED CELL DISTRIBUTION WIDTH 15.1 % (11.6-14.6)
[2018-05-19] MEDS: LOSARTAN POTASSIUM 25 MG TABLET PO SCH (09:00)
[2018-05-19] MEDS: AMLODIPINE 5MG TABLET PO SCH ×2 (09:00→21:00)
[2018-05-19] MEDS: DOCUSATE SODIUM 100MG CAPSULE PO SCH ×2 (09:30→17:59)
[2018-05-19] MEDS: BISACODYL 10MG SUPP PR SCH ×2 (09:30→21:00)
[2018-05-19] MEDS: DIVALPROEX SODIUM 250MG DR TABLET PO SCH ×2 (09:31→17:59)
[2018-05-19] MEDS: HYDROCHLOROTHIAZIDE 25MG TABLET PO SCH (09:31)
[2018-05-19] MEDS: ASPIRIN 81MG EC TABLET PO SCH (09:31)
[2018-05-19 10:33] LABS: CHLORIDE 100 mEq/L (98-107)
[2018-05-19 10:44] LABS: ATYPICAL LYMPHOCYTES 1
[2018-05-19 10:45] LABS: PLATELET ESTIMATE NORMAL
[2018-05-19] MEDS ORDERED: SODIUM CHLORIDE 0.45% 1,000 ML IV SCH (15:45)
[2018-05-19] MEDS: LEVOFLOXACIN 750MG PREMIX 150 ML IV SCH (17:59)
[2018-05-19] MEDS: MULTIVITAMINS,THER W-MINERALS TABLET PO SCH (17:59)
[2018-05-19] MEDS: FOLIC ACID 1MG TABLET PO SCH (17:59)
[2018-05-19] MEDS: THIAMINE HCL 100MG TABLET PO SCH (17:59)
[2018-05-19] MEDS: QUETIAPINE FUMARATE 25MG TABLET PO SCH (20:59)
[2018-05-19] MEDS ORDERED: TOTAL PARENTERAL NUTRITION 1,900 ML IV SCH (21:00)
[2018-05-19] MEDS: FAT EMULSIONS 500 ML IV SCH (21:02)
[2018-05-19 21:41] LABS: ETHANOL BLOOD < 10 mg/dL; T4 FREE 1.21 ng/dL (0.76-1.46)
[2018-05-19 22:05] LABS: VITAMIN B12 SERUM 1866 pg/mL (211-911)
[2018-05-19 22:15] LABS: FOLIC ACID (FOLATE) SERUM > 20.00 ng/mL (>5.38)
[2018-05-20] VITALS (11 sets, daily range): BP systolic 112–137; BP diastolic 58–118
[2018-05-20] MEDS: METRONIDAZOLE 500 MG PREMIX 100 ML IV SCH ×3 (01:43→17:32)
[2018-05-20] MEDS: MORPHINE SULFATE 4 MG/ML CPJ (NOT FOR IM USE) IV PRN ×6 (03:35→22:27)
[2018-05-20] MEDS: BLOOD SUGAR DIAGNOSTIC STRIP TEST SCH ×3 (05:54→17:57)
[2018-05-20] MEDS: METOCLOPRAMIDE HCL 10MG/2ML VIAL IV SCH ×3 (05:54→17:41)
[2018-05-20] MEDS: INSULIN LISPRO 100 UNITS/ML SUBCUT SCH ×3 (06:00→18:04)
[2018-05-20 07:10] LABS: BASOPHILS % 0.5 % (0.0-2.0); HEMATOCRIT. 42.3 % (42.0-52.0); HEMOGLOBIN. 14.1 g/dL (14.0-18.0); LYMPHOCYTES % 15.9 % (20.0-50.0); MEAN CORPUSCULAR HEMOGLOBIN 28.3 pg (28.0-32.0); MEAN CORPUSCULAR VOLUME 84.6 fL (80.0-94.0); MEAN PLATELET VOLUME 8.3 fl (7.4-10.4); MONOCYTES % 10.3 % (2.0-8.0); NEUTROPHILS % 66.3 % (40.0-76.0); PLATELET 327 x1000/uL (130-400); RED CELL DISTRIBUTION WIDTH 14.8 % (11.6-14.6)
[2018-05-20 07:11] LABS: CHLORIDE 99 mEq/L (98-107)
[2018-05-20 07:15] LABS: PHOSPHORUS 2.2 mg/dL (2.5-4.9)
[2018-05-20] MEDS: DOCUSATE SODIUM 100MG CAPSULE PO SCH ×2 (08:02→17:33)
[2018-05-20] MEDS: DIVALPROEX SODIUM 250MG DR TABLET PO SCH ×4 (08:02→17:33)
[2018-05-20] MEDS: THIAMINE HCL 100MG TABLET PO SCH (08:02)
[2018-05-20] MEDS: FOLIC ACID 1MG TABLET PO SCH (08:02)
[2018-05-20] MEDS: ASPIRIN 81MG EC TABLET PO SCH (08:02)
[2018-05-20] MEDS: HYDROCHLOROTHIAZIDE 25MG TABLET PO SCH (08:02)
[2018-05-20] MEDS: AMLODIPINE 5MG TABLET PO SCH ×2 (08:03→21:09)
[2018-05-20] MEDS: BISACODYL 10MG SUPP PR SCH ×2 (08:03→21:07)
[2018-05-20] MEDS: LOSARTAN POTASSIUM 25 MG TABLET PO SCH (08:03)
[2018-05-20] MEDS: MULTIVITAMINS,THER W-MINERALS TABLET PO SCH (08:03)
[2018-05-20] MEDS: LACTULOSE 20G/30ML UDC PO SCH ×2 (14:25→21:07)
[2018-05-20] MEDS: LEVOFLOXACIN 750MG PREMIX 150 ML IV SCH (17:32)
[2018-05-20] MEDS ORDERED: TOTAL PARENTERAL NUTRITION 1,900 ML IV SCH (21:00)
[2018-05-20] MEDS: ENOXAPARIN 40MG/0.4ML SYR SUBCUT SCH (21:07)
[2018-05-20] MEDS: ONDANSETRON HCL 4MG/2ML INJ IV PRN (21:07)
[2018-05-20] MEDS: QUETIAPINE FUMARATE 25MG TABLET PO SCH (21:09)
[2018-05-21] VITALS (12 sets, daily range): BP systolic 103–128; BP diastolic 68–94
[2018-05-21] MEDS: INSULIN LISPRO 100 UNITS/ML SUBCUT SCH ×5 (00:26→23:57)
[2018-05-21] MEDS: METOCLOPRAMIDE HCL 10MG/2ML VIAL IV SCH ×5 (00:26→23:55)
[2018-05-21] MEDS: MORPHINE SULFATE 4 MG/ML CPJ (NOT FOR IM USE) IV PRN ×5 (02:19→18:59)
[2018-05-21] MEDS: LACTULOSE 20G/30ML UDC PO SCH ×2 (05:11→13:57)
[2018-05-21] MEDS: BLOOD SUGAR DIAGNOSTIC STRIP TEST SCH ×5 (05:30→23:57)
[2018-05-21 07:10] LABS: BASOPHILS % 0.6 % (0.0-2.0); EOSINOPHILS % 3.6 % (0.0-5.0); HEMATOCRIT. 42.6 % (42.0-52.0); HEMOGLOBIN. 13.7 g/dL (14.0-18.0); LYMPHOCYTES % 14.6 % (20.0-50.0); MEAN CORPUSCULAR HEMOGLOBIN 27.2 pg (28.0-32.0); MEAN CORPUSCULAR VOLUME 84.7 fL (80.0-94.0); MEAN PLATELET VOLUME 8.6 fl (7.4-10.4); MONOCYTES % 11.3 % (2.0-8.0); NEUTROPHILS % 69.9 % (40.0-76.0); PLATELET 329 x1000/uL (130-400); RED BLOOD CELL COUNT 5.03 mill/uL (4.7-6.1); RED CELL DISTRIBUTION WIDTH 14.5 % (11.6-14.6)
[2018-05-21 07:39] LABS: CHLORIDE 98 mEq/L (98-107)
[2018-05-21 07:46] LABS: PHOSPHORUS 3.1 mg/dL (2.5-4.9)
[2018-05-21] MEDS: AMLODIPINE 5MG TABLET PO SCH ×2 (08:50→21:00)
[2018-05-21] MEDS: THIAMINE HCL 100MG TABLET PO SCH (08:51)
[2018-05-21] MEDS: DOCUSATE SODIUM 100MG CAPSULE PO SCH ×2 (08:51→17:41)
[2018-05-21] MEDS: ASPIRIN 81MG EC TABLET PO SCH (08:51)
[2018-05-21] MEDS: MULTIVITAMINS,THER W-MINERALS TABLET PO SCH (08:51)
[2018-05-21] MEDS: LOSARTAN POTASSIUM 25 MG TABLET PO SCH (08:51)
[2018-05-21] MEDS: BISACODYL 10MG SUPP PR SCH ×2 (08:51→21:36)
[2018-05-21] MEDS: FOLIC ACID 1MG TABLET PO SCH (08:51)
[2018-05-21] MEDS: DIVALPROEX SODIUM 250MG DR TABLET PO SCH ×3 (08:51→17:41)
[2018-05-21] MEDS: HYDROCHLOROTHIAZIDE 25MG TABLET PO SCH (08:51)
[2018-05-21] MEDS: LEVOFLOXACIN 750MG PREMIX 150 ML IV SCH (17:43)
[2018-05-21] MEDS ORDERED: TOTAL PARENTERAL NUTRITION 1,900 ML IV SCH (21:00)
[2018-05-21] MEDS: QUETIAPINE FUMARATE 25MG TABLET PO SCH (21:36)
[2018-05-21] MEDS: FAT EMULSIONS 500 ML IV SCH (21:38)
[2018-05-21] MEDS: ENOXAPARIN 40MG/0.4ML SYR SUBCUT SCH (23:56)
[2018-05-22] VITALS (12 sets, daily range): BP systolic 103–127; BP diastolic 55–88
[2018-05-22] MEDS: MORPHINE SULFATE 4 MG/ML CPJ (NOT FOR IM USE) IV PRN ×5 (03:22→21:29)
[2018-05-22] MEDS: METOCLOPRAMIDE HCL 10MG/2ML VIAL IV SCH ×3 (06:36→18:33)
[2018-05-22] MEDS: INSULIN LISPRO 100 UNITS/ML SUBCUT SCH ×3 (06:37→18:34)
[2018-05-22] MEDS: BLOOD SUGAR DIAGNOSTIC STRIP TEST SCH ×3 (06:37→18:34)
[2018-05-22] MEDS: AMLODIPINE 5MG TABLET PO SCH ×3 (08:16→21:00)
[2018-05-22] MEDS: DIVALPROEX SODIUM 250MG DR TABLET PO SCH ×3 (08:16→16:21)
[2018-05-22] MEDS: FOLIC ACID 1MG TABLET PO SCH (08:17)
[2018-05-22] MEDS: PANTOPRAZOLE SODIUM 40 MG/VIAL IV SCH (08:17)
[2018-05-22] MEDS: ASPIRIN 81MG EC TABLET PO SCH (08:17)
[2018-05-22] MEDS: LOSARTAN POTASSIUM 25 MG TABLET PO SCH (08:18)
[2018-05-22] MEDS: HYDROCHLOROTHIAZIDE 25MG TABLET PO SCH (08:18)
[2018-05-22] MEDS: BISACODYL 10MG SUPP PR SCH ×2 (08:18→21:28)
[2018-05-22] MEDS: THIAMINE HCL 100MG TABLET PO SCH (08:18)
[2018-05-22] MEDS: MULTIVITAMINS,THER W-MINERALS TABLET PO SCH (08:18)
[2018-05-22 09:47] LABS: BASOPHILS % 0.7 % (0.0-2.0); HEMATOCRIT. 38.8 % (42.0-52.0); LYMPHOCYTES % 12.2 % (20.0-50.0); MEAN CORPUSCULAR VOLUME 84.8 fL (80.0-94.0); MONOCYTES % 6.3 % (2.0-8.0); NEUTROPHILS % 73.8 % (40.0-76.0); PLATELET 183 x1000/uL (130-400); RED BLOOD CELL COUNT 4.57 mill/uL (4.7-6.1); RED CELL DISTRIBUTION WIDTH 14.7 % (11.6-14.6)
[2018-05-22 09:49] LABS: HEMOGLOBIN. 12.6 g/dL (14.0-18.0); MEAN CORPUSCULAR HEMOGLOBIN 27.6 pg (28.0-32.0)
[2018-05-22 14:02] LABS: CHLORIDE 94 mEq/L (98-107)
[2018-05-22 14:07] LABS: PLATELET ESTIMATE NORMAL
[2018-05-22] MEDS: LACTULOSE 20G/30ML UDC PO SCH ×2 (15:35→21:28)
[2018-05-22] MEDS: LEVOFLOXACIN 750MG PREMIX 150 ML IV SCH (16:21)
[2018-05-22] MEDS ORDERED: TOTAL PARENTERAL NUTRITION 1,900 ML IV SCH (21:00)
[2018-05-22] MEDS: QUETIAPINE FUMARATE 25MG TABLET PO SCH (21:28)
[2018-05-22] MEDS: ENOXAPARIN 40MG/0.4ML SYR SUBCUT SCH (23:00)
[2018-05-23] VITALS (12 sets, daily range): BP systolic 102–131; BP diastolic 42–95
[2018-05-23] MEDS: LACTULOSE 20G/30ML UDC PO SCH (05:39)
[2018-05-23] MEDS: METOCLOPRAMIDE HCL 10MG/2ML VIAL IV SCH ×5 (05:39→23:56)
[2018-05-23] MEDS: MORPHINE SULFATE 4 MG/ML CPJ (NOT FOR IM USE) IV PRN ×3 (05:40→14:45)
[2018-05-23] MEDS: INSULIN LISPRO 100 UNITS/ML SUBCUT SCH ×4 (05:41→23:57)
[2018-05-23] MEDS: BLOOD SUGAR DIAGNOSTIC STRIP TEST SCH ×4 (05:41→23:57)
[2018-05-23 08:50] LABS: HEMATOCRIT. 42.7 % (42.0-52.0); RED BLOOD CELL COUNT 5.06 mill/uL (4.7-6.1)
[2018-05-23 08:51] LABS: BASOPHILS % 0.5 % (0.0-2.0); EOSINOPHILS % 3.5 % (0.0-5.0); MEAN CORPUSCULAR HEMOGLOBIN 27.6 pg (28.0-32.0); MEAN CORPUSCULAR VOLUME 84.4 fL (80.0-94.0); MEAN PLATELET VOLUME 8.8 fl (7.4-10.4); MONOCYTES % 8.5 % (2.0-8.0); NEUTROPHILS % 75.5 % (40.0-76.0); PLATELET 367 x1000/uL (130-400); RED CELL DISTRIBUTION WIDTH 14.2 % (11.6-14.6)
[2018-05-23] MEDS: AMLODIPINE 5MG TABLET PO SCH ×2 (09:00→21:00)
[2018-05-23] MEDS: LOSARTAN POTASSIUM 25 MG TABLET PO SCH (09:00)
[2018-05-23] MEDS: DIVALPROEX SODIUM 250MG DR TABLET PO SCH ×4 (09:25→17:54)
[2018-05-23] MEDS: BISACODYL 10MG SUPP PR SCH ×2 (09:25→21:45)
[2018-05-23] MEDS: MULTIVITAMINS,THER W-MINERALS TABLET PO SCH (09:25)
[2018-05-23] MEDS: PANTOPRAZOLE SODIUM 40 MG/VIAL IV SCH (09:25)
[2018-05-23] MEDS: ASPIRIN 81MG EC TABLET PO SCH (09:25)
[2018-05-23] MEDS: HYDROCHLOROTHIAZIDE 25MG TABLET PO SCH (09:26)
[2018-05-23] MEDS: FOLIC ACID 1MG TABLET PO SCH (09:26)
[2018-05-23] MEDS: THIAMINE HCL 100MG TABLET PO SCH (09:26)
[2018-05-23 11:02] LABS: CHLORIDE 97 mEq/L (98-107)
[2018-05-23] MEDS ORDERED: TOTAL PARENTERAL NUTRITION 1,900 ML IV SCH ×2 (12:15→21:00)
[2018-05-23] MEDS: ONDANSETRON HCL 4MG/2ML INJ IV PRN (17:54)
[2018-05-23] MEDS ORDERED: IOHEXOL-350 100 ML BOTTLE ONE (19:04)
[2018-05-23] MEDS: FAT EMULSIONS 500 ML IV SCH (21:46)
[2018-05-23] MEDS: QUETIAPINE FUMARATE 25MG TABLET PO SCH (21:46)
[2018-05-23] MEDS: ENOXAPARIN 40MG/0.4ML SYR SUBCUT SCH (23:56)
[2018-05-24] VITALS (11 sets, daily range): BP systolic 89–122; BP diastolic 41–80
[2018-05-24] MEDS: MORPHINE SULFATE 4 MG/ML CPJ (NOT FOR IM USE) IV PRN ×4 (05:41→22:08)
[2018-05-24] MEDS: METOCLOPRAMIDE HCL 10MG/2ML VIAL IV SCH ×3 (05:41→17:35)
[2018-05-24] MEDS: BLOOD SUGAR DIAGNOSTIC STRIP TEST SCH ×3 (05:43→17:34)
[2018-05-24] MEDS: INSULIN LISPRO 100 UNITS/ML SUBCUT SCH ×3 (05:43→17:34)
[2018-05-24 06:49] LABS: CHLORIDE 96 mEq/L (98-107)
[2018-05-24 06:58] LABS: BASOPHILS % 0.9 % (0.0-2.0); EOSINOPHILS % 4.1 % (0.0-5.0); HEMATOCRIT. 40.6 % (42.0-52.0); HEMOGLOBIN. 13.9 g/dL (14.0-18.0); LYMPHOCYTES % 13.6 % (20.0-50.0); MEAN CORPUSCULAR HEMOGLOBIN 28.6 pg (28.0-32.0); MEAN CORPUSCULAR VOLUME 83.6 fL (80.0-94.0); MEAN PLATELET VOLUME 8.6 fl (7.4-10.4); MONOCYTES % 7.6 % (2.0-8.0); NEUTROPHILS % 73.8 % (40.0-76.0); PLATELET 420 x1000/uL (130-400); RED BLOOD CELL COUNT 4.86 mill/uL (4.7-6.1); RED CELL DISTRIBUTION WIDTH 14.2 % (11.6-14.6)
[2018-05-24] MEDS: LOSARTAN POTASSIUM 25 MG TABLET PO SCH (08:41)
[2018-05-24] MEDS: AMLODIPINE 5MG TABLET PO SCH ×2 (08:43→21:00)
[2018-05-24] MEDS: ASPIRIN 81MG EC TABLET PO SCH (08:45)
[2018-05-24] MEDS: FOLIC ACID 1MG TABLET PO SCH (08:45)
[2018-05-24] MEDS: MULTIVITAMINS,THER W-MINERALS TABLET PO SCH (08:45)
[2018-05-24] MEDS: BISACODYL 10MG SUPP PR SCH ×2 (08:45→22:06)
[2018-05-24] MEDS: PANTOPRAZOLE SODIUM 40 MG/VIAL IV SCH (08:45)
[2018-05-24] MEDS: HYDROCHLOROTHIAZIDE 25MG TABLET PO SCH (08:45)
[2018-05-24] MEDS: THIAMINE HCL 100MG TABLET PO SCH (08:46)
[2018-05-24] MEDS: DIVALPROEX SODIUM 250MG DR TABLET PO SCH ×3 (08:46→17:36)
[2018-05-24] MEDS ORDERED: TOTAL PARENTERAL NUTRITION 1,900 ML IV SCH (21:00)
[2018-05-24] MEDS: QUETIAPINE FUMARATE 25MG TABLET PO SCH (22:05)
[2018-05-24] MEDS: ENOXAPARIN 40MG/0.4ML SYR SUBCUT SCH (23:00)
[2018-05-25] VITALS (10 sets, daily range): BP systolic 95–124; BP diastolic 68–82
[2018-05-25] MEDS: METOCLOPRAMIDE HCL 10MG/2ML VIAL IV SCH ×5 (00:25→23:51)
[2018-05-25] MEDS: INSULIN LISPRO 100 UNITS/ML SUBCUT SCH ×5 (00:29→23:59)
[2018-05-25] MEDS: BLOOD SUGAR DIAGNOSTIC STRIP TEST SCH ×5 (00:30→23:51)
[2018-05-25] MEDS: MORPHINE SULFATE 4 MG/ML CPJ (NOT FOR IM USE) IV PRN ×6 (04:37→23:53)
[2018-05-25 07:30] LABS: BASOPHILS % 0.6 % (0.0-2.0); EOSINOPHILS % 4.7 % (0.0-5.0); HEMATOCRIT. 37.5 % (42.0-52.0); HEMOGLOBIN. 12.4 g/dL (14.0-18.0); LYMPHOCYTES % 19.7 % (20.0-50.0); MEAN CORPUSCULAR HEMOGLOBIN 27.8 pg (28.0-32.0); MEAN CORPUSCULAR VOLUME 84.2 fL (80.0-94.0); MEAN PLATELET VOLUME 8.9 fl (7.4-10.4); MONOCYTES % 11.1 % (2.0-8.0); NEUTROPHILS % 63.9 % (40.0-76.0); PLATELET 378 x1000/uL (130-400); RED BLOOD CELL COUNT 4.46 mill/uL (4.7-6.1); RED CELL DISTRIBUTION WIDTH 14.5 % (11.6-14.6)
[2018-05-25 07:49] LABS: CHLORIDE 97 mEq/L (98-107)
[2018-05-25] MEDS: LOSARTAN POTASSIUM 25 MG TABLET PO SCH (09:00)
[2018-05-25] MEDS: HYDROCHLOROTHIAZIDE 25MG TABLET PO SCH (09:00)
[2018-05-25] MEDS: AMLODIPINE 5MG TABLET PO SCH ×2 (09:00→21:00)
[2018-05-25] MEDS: PANTOPRAZOLE SODIUM 40 MG/VIAL IV SCH (09:16)
[2018-05-25] MEDS: FOLIC ACID 1MG TABLET PO SCH (09:16)
[2018-05-25] MEDS: ASPIRIN 81MG EC TABLET PO SCH (09:16)
[2018-05-25] MEDS: THIAMINE HCL 100MG TABLET PO SCH (09:16)
[2018-05-25] MEDS: MULTIVITAMINS,THER W-MINERALS TABLET PO SCH (09:16)
[2018-05-25] MEDS: DIVALPROEX SODIUM 250MG DR TABLET PO SCH ×3 (09:16→18:32)
[2018-05-25] MEDS: BISACODYL 10MG SUPP PR SCH ×2 (09:16→21:42)
[2018-05-25] MEDS: DIPHENHYDRAMINE 50MG/ML VIAL IV PRN (18:31)
[2018-05-25] MEDS ORDERED: TOTAL PARENTERAL NUTRITION 1,900 ML IV SCH (21:00)
[2018-05-25] MEDS: QUETIAPINE FUMARATE 25MG TABLET PO SCH (21:42)
[2018-05-25] MEDS: FAMOTIDINE 20MG/2ML VIAL IV SCH (21:42)
[2018-05-25] MEDS: ENOXAPARIN 40MG/0.4ML SYR SUBCUT SCH (23:51)
[2018-05-26] VITALS: BP 110/77
[2018-05-26 04:00] VITALS: BP 112/80
[2018-05-26 06:00] VITALS: BP 105/76
[2018-05-26] MEDS: METOCLOPRAMIDE HCL 10MG/2ML VIAL IV SCH ×4 (06:36→23:34)
[2018-05-26] MEDS: MORPHINE SULFATE 4 MG/ML CPJ (NOT FOR IM USE) IV PRN ×7 (06:37→23:36)
[2018-05-26] MEDS: BLOOD SUGAR DIAGNOSTIC STRIP TEST SCH ×4 (06:40→23:34)
[2018-05-26] MEDS: INSULIN LISPRO 100 UNITS/ML SUBCUT SCH ×4 (06:47→23:34)
[2018-05-26] MEDS: LOSARTAN POTASSIUM 25 MG TABLET PO SCH (09:00)
[2018-05-26] MEDS: AMLODIPINE 5MG TABLET PO SCH ×2 (09:00→21:00)
[2018-05-26] MEDS: HYDROCHLOROTHIAZIDE 25MG TABLET PO SCH (09:19)
[2018-05-26] MEDS: FAMOTIDINE 20MG/2ML VIAL IV SCH ×2 (09:19→21:46)
[2018-05-26] MEDS: THIAMINE HCL 100MG TABLET PO SCH (09:19)
[2018-05-26] MEDS: MULTIVITAMINS,THER W-MINERALS TABLET PO SCH (09:19)
[2018-05-26] MEDS: ONDANSETRON HCL 4MG/2ML INJ IV PRN ×2 (09:19→16:10)
[2018-05-26] MEDS: FOLIC ACID 1MG TABLET PO SCH (09:19)
[2018-05-26] MEDS: DIVALPROEX SODIUM 250MG DR TABLET PO SCH ×3 (09:20→16:13)
[2018-05-26] MEDS: ASPIRIN 81MG EC TABLET PO SCH (09:21)
[2018-05-26] MEDS: BISACODYL 10MG SUPP PR SCH ×2 (09:22→21:48)
[2018-05-26] MEDS: DIPHENHYDRAMINE 50MG/ML VIAL IV PRN ×2 (11:19→17:29)
[2018-05-26 20:00] VITALS: BP 133/93
[2018-05-26] MEDS ORDERED: TOTAL PARENTERAL NUTRITION 1,900 ML IV SCH (21:00)
[2018-05-26] MEDS: FAT EMULSIONS 500 ML IV SCH (21:46)
[2018-05-26] MEDS: QUETIAPINE FUMARATE 25MG TABLET PO SCH (21:46)
[2018-05-26] MEDS: ENOXAPARIN 40MG/0.4ML SYR SUBCUT SCH (22:09)
[2018-05-27] VITALS: BP 122/83
[2018-05-27 04:00] VITALS: BP 147/103
[2018-05-27] MEDS: METOCLOPRAMIDE HCL 10MG/2ML VIAL IV SCH ×3 (06:52→17:44)
[2018-05-27] MEDS: MORPHINE SULFATE 4 MG/ML CPJ (NOT FOR IM USE) IV PRN ×3 (06:52→21:57)
[2018-05-27] MEDS: INSULIN LISPRO 100 UNITS/ML SUBCUT SCH ×3 (06:55→17:47)
[2018-05-27] MEDS: BLOOD SUGAR DIAGNOSTIC STRIP TEST SCH ×4 (06:55→23:39)
[2018-05-27] MEDS: FAMOTIDINE 20MG/2ML VIAL IV SCH ×2 (08:43→21:54)
[2018-05-27] MEDS: AMLODIPINE 5MG TABLET PO SCH ×2 (08:43→21:53)
[2018-05-27] MEDS: LOSARTAN POTASSIUM 25 MG TABLET PO SCH (08:43)
[2018-05-27] MEDS: HYDROCHLOROTHIAZIDE 25MG TABLET PO SCH (08:43)
[2018-05-27] MEDS: MULTIVITAMINS,THER W-MINERALS TABLET PO SCH (08:43)
[2018-05-27] MEDS: ASPIRIN 81MG EC TABLET PO SCH (08:44)
[2018-05-27] MEDS: FOLIC ACID 1MG TABLET PO SCH (08:44)
[2018-05-27] MEDS: BISACODYL 10MG SUPP PR SCH ×3 (08:44→21:54)
[2018-05-27] MEDS: DIVALPROEX SODIUM 250MG DR TABLET PO SCH ×3 (08:44→17:44)
[2018-05-27] MEDS: THIAMINE HCL 100MG TABLET PO SCH (08:44)
[2018-05-27 11:02] LABS: BASOPHILS % 1.1 % (0.0-2.0); EOSINOPHILS % 5.8 % (0.0-5.0); HEMATOCRIT. 36.7 % (42.0-52.0); HEMOGLOBIN. 11.9 g/dL (14.0-18.0); LYMPHOCYTES % 27.5 % (20.0-50.0); MEAN CORPUSCULAR HEMOGLOBIN 27.1 pg (28.0-32.0); MEAN CORPUSCULAR VOLUME 83.6 fL (80.0-94.0); MEAN PLATELET VOLUME 8.8 fl (7.4-10.4); MONOCYTES % 11.7 % (2.0-8.0); NEUTROPHILS % 53.9 % (40.0-76.0); PLATELET 456 x1000/uL (130-400); RED CELL DISTRIBUTION WIDTH 14.2 % (11.6-14.6)
[2018-05-27 11:11] LABS: CHLORIDE 98 mEq/L (98-107)
[2018-05-27] MEDS: INSULIN GLARGINE UD 100 UNITS/ML SYR SUBCUT SCH (15:57)
[2018-05-27 20:00] VITALS: BP 125/74
[2018-05-27] MEDS ORDERED: TOTAL PARENTERAL NUTRITION 1,900 ML IV SCH (21:00)
[2018-05-27] MEDS: ENOXAPARIN 40MG/0.4ML SYR SUBCUT SCH (21:51)
[2018-05-27] MEDS: QUETIAPINE FUMARATE 25MG TABLET PO SCH (21:53)
[2018-05-27 22:00] VITALS: BP 115/72
[2018-05-28] VITALS: BP 110/68
[2018-05-28] MEDS: METOCLOPRAMIDE HCL 10MG/2ML VIAL IV SCH ×4 (00:31→17:23)
[2018-05-28 02:00] VITALS: BP 98/60
[2018-05-28 04:00] VITALS: BP 118/65
[2018-05-28 06:00] VITALS: BP 118/60
[2018-05-28] MEDS: INSULIN LISPRO 100 UNITS/ML SUBCUT SCH ×4 (06:00→17:24)
[2018-05-28] MEDS: LOSARTAN POTASSIUM 25 MG TABLET PO SCH (08:40)
[2018-05-28] MEDS: FOLIC ACID 1MG TABLET PO SCH (08:40)
[2018-05-28] MEDS: FAMOTIDINE 20MG/2ML VIAL IV SCH ×2 (08:40→21:42)
[2018-05-28] MEDS: DIVALPROEX SODIUM 250MG DR TABLET PO SCH ×3 (08:40→17:24)
[2018-05-28] MEDS: MULTIVITAMINS,THER W-MINERALS TABLET PO SCH (08:41)
[2018-05-28] MEDS: ASPIRIN 81MG EC TABLET PO SCH (08:41)
[2018-05-28] MEDS: HYDROCHLOROTHIAZIDE 25MG TABLET PO SCH (08:41)
[2018-05-28] MEDS: THIAMINE HCL 100MG TABLET PO SCH (08:41)
[2018-05-28] MEDS: BISACODYL 10MG SUPP PR SCH ×3 (08:41→21:00)
[2018-05-28] MEDS: AMLODIPINE 5MG TABLET PO SCH ×2 (08:42→21:00)
[2018-05-28] MEDS: INSULIN GLARGINE UD 100 UNITS/ML SYR SUBCUT SCH (10:08)
[2018-05-28 10:22] LABS: HEMATOCRIT. 36.2 % (42.0-52.0); HEMOGLOBIN. 11.7 g/dL (14.0-18.0); MEAN CORPUSCULAR HEMOGLOBIN 27.2 pg (28.0-32.0); MEAN PLATELET VOLUME 8.8 fl (7.4-10.4); PLATELET 476 x1000/uL (130-400); RED BLOOD CELL COUNT 4.31 mill/uL (4.7-6.1); RED CELL DISTRIBUTION WIDTH 14.5 % (11.6-14.6)
[2018-05-28 10:53] LABS: CHLORIDE 99 mEq/L (98-107)
[2018-05-28] MEDS: ONDANSETRON HCL 4MG/2ML INJ IV PRN ×2 (11:00→21:43)
[2018-05-28] MEDS: BLOOD SUGAR DIAGNOSTIC STRIP TEST SCH ×2 (12:48→17:41)
[2018-05-28 13:06] LABS: PLATELET ESTIMATE INCREASED
[2018-05-28 16:00] VITALS: BP 113/69
[2018-05-28] MEDS: MORPHINE SULFATE 4 MG/ML CPJ (NOT FOR IM USE) IV PRN ×2 (17:23→21:44)
[2018-05-28] MEDS ORDERED: TOTAL PARENTERAL NUTRITION 1,900 ML IV SCH (21:00)
[2018-05-28] MEDS: QUETIAPINE FUMARATE 25MG TABLET PO SCH (21:42)
[2018-05-28] MEDS: ENOXAPARIN 40MG/0.4ML SYR SUBCUT SCH (21:43)
[2018-05-28] MEDS: FAT EMULSIONS 500 ML IV SCH (22:29)
[2018-05-29 00:34] VITALS: BP 118/67
[2018-05-29] MEDS: METOCLOPRAMIDE HCL 10MG/2ML VIAL IV SCH ×5 (00:36→23:58)
[2018-05-29] MEDS: BLOOD SUGAR DIAGNOSTIC STRIP TEST SCH ×5 (00:47→23:05)
[2018-05-29] MEDS: MORPHINE SULFATE 4 MG/ML CPJ (NOT FOR IM USE) IV PRN ×4 (01:48→17:20)
[2018-05-29 04:00] VITALS: BP 115/80
[2018-05-29] MEDS: INSULIN LISPRO 100 UNITS/ML SUBCUT SCH ×5 (06:00→23:05)
[2018-05-29 08:08] VITALS: BP 106/78
[2018-05-29] MEDS: LOSARTAN POTASSIUM 25 MG TABLET PO SCH (09:00)
[2018-05-29] MEDS: AMLODIPINE 5MG TABLET PO SCH ×2 (09:00→20:22)
[2018-05-29] MEDS: HYDROCHLOROTHIAZIDE 25MG TABLET PO SCH (09:17)
[2018-05-29] MEDS: THIAMINE HCL 100MG TABLET PO SCH (09:18)
[2018-05-29] MEDS: DIVALPROEX SODIUM 250MG DR TABLET PO SCH ×2 (09:18→17:24)
[2018-05-29] MEDS: MULTIVITAMINS,THER W-MINERALS TABLET PO SCH (09:18)
[2018-05-29] MEDS: FOLIC ACID 1MG TABLET PO SCH (09:18)
[2018-05-29] MEDS: ASPIRIN 81MG EC TABLET PO SCH (09:19)
[2018-05-29] MEDS: BISACODYL 10MG SUPP PR SCH ×2 (09:19→20:22)
[2018-05-29] MEDS: FAMOTIDINE 20MG/2ML VIAL IV SCH ×2 (09:19→20:22)
[2018-05-29] MEDS: INSULIN GLARGINE UD 100 UNITS/ML SYR SUBCUT SCH (09:20)
[2018-05-29] MEDS: ONDANSETRON HCL 4MG/2ML INJ IV PRN (10:37)
[2018-05-29 12:00] VITALS: BP 110/79
[2018-05-29 16:00] VITALS: BP 116/79
[2018-05-29 20:00] VITALS: BP 121/82
[2018-05-29] MEDS: QUETIAPINE FUMARATE 25MG TABLET PO SCH (20:22)
[2018-05-29] MEDS ORDERED: TOTAL PARENTERAL NUTRITION 1,900 ML IV SCH (21:00)
[2018-05-29] MEDS: ENOXAPARIN 40MG/0.4ML SYR SUBCUT SCH (21:48)
[2018-05-30] VITALS: BP 101/68
[2018-05-30 04:00] VITALS: BP 102/64
[2018-05-30] MEDS: METOCLOPRAMIDE HCL 10MG/2ML VIAL IV SCH ×3 (04:57→19:03)
[2018-05-30] MEDS: MORPHINE SULFATE 4 MG/ML CPJ (NOT FOR IM USE) IV PRN ×2 (04:58→15:34)
[2018-05-30] MEDS: INSULIN LISPRO 100 UNITS/ML SUBCUT SCH ×3 (05:16→18:00)
[2018-05-30] MEDS: BLOOD SUGAR DIAGNOSTIC STRIP TEST SCH ×3 (05:16→18:00)
[2018-05-30 07:37] LABS: BASOPHILS % 0.7 % (0.0-2.0); EOSINOPHILS % 8.5 % (0.0-5.0); HEMATOCRIT. 33.7 % (42.0-52.0); HEMOGLOBIN. 11.2 g/dL (14.0-18.0); MEAN CORPUSCULAR HEMOGLOBIN 27.8 pg (28.0-32.0); MEAN CORPUSCULAR VOLUME 83.6 fL (80.0-94.0); MEAN PLATELET VOLUME 8.9 fl (7.4-10.4); MONOCYTES % 11.4 % (2.0-8.0); NEUTROPHILS % 48.4 % (40.0-76.0); PLATELET 433 x1000/uL (130-400); RED BLOOD CELL COUNT 4.03 mill/uL (4.7-6.1); RED CELL DISTRIBUTION WIDTH 14.8 % (11.6-14.6)
[2018-05-30 07:51] LABS: CHLORIDE 102 mEq/L (98-107)
[2018-05-30 07:58] VITALS: BP 104/68
[2018-05-30] MEDS: HYDROCHLOROTHIAZIDE 25MG TABLET PO SCH (09:00)
[2018-05-30] MEDS: AMLODIPINE 5MG TABLET PO SCH ×2 (09:00→21:00)
[2018-05-30] MEDS: LOSARTAN POTASSIUM 25 MG TABLET PO SCH (09:00)
[2018-05-30] MEDS: FAMOTIDINE 20MG/2ML VIAL IV SCH ×2 (09:12→21:09)
[2018-05-30] MEDS: FOLIC ACID 1MG TABLET PO SCH (09:12)
[2018-05-30] MEDS: DIVALPROEX SODIUM 250MG DR TABLET PO SCH ×3 (09:12→19:04)
[2018-05-30] MEDS: THIAMINE HCL 100MG TABLET PO SCH (09:13)
[2018-05-30] MEDS: ASPIRIN 81MG EC TABLET PO SCH (09:13)
[2018-05-30] MEDS: INSULIN GLARGINE UD 100 UNITS/ML SYR SUBCUT SCH (09:13)
[2018-05-30] MEDS: MULTIVITAMINS,THER W-MINERALS TABLET PO SCH (09:14)
[2018-05-30] MEDS: BISACODYL 10MG SUPP PR SCH ×2 (09:19→21:00)
[2018-05-30] MEDS: ONDANSETRON HCL 4MG/2ML INJ IV PRN (15:34)
[2018-05-30 17:27] LABS: BASOPHILS % 0.8 % (0.0-2.0); EOSINOPHILS % 4.6 % (0.0-5.0); HEMATOCRIT. 38.3 % (42.0-52.0); HEMOGLOBIN. 12.5 g/dL (14.0-18.0); LYMPHOCYTES % 31.7 % (20.0-50.0); MEAN CORPUSCULAR HEMOGLOBIN 27.6 pg (28.0-32.0); MEAN CORPUSCULAR VOLUME 84.4 fL (80.0-94.0); MEAN PLATELET VOLUME 8.7 fl (7.4-10.4); MONOCYTES % 11.6 % (2.0-8.0); NEUTROPHILS % 51.3 % (40.0-76.0); PLATELET 455 x1000/uL (130-400); RED BLOOD CELL COUNT 4.54 mill/uL (4.7-6.1); RED CELL DISTRIBUTION WIDTH 14.7 % (11.6-14.6)
[2018-05-30 17:47] LABS: CHLORIDE 101 mEq/L (98-107)
[2018-05-30 20:00] VITALS: BP 103/64
[2018-05-30] MEDS: QUETIAPINE FUMARATE 25MG TABLET PO SCH (21:08)
[2018-05-31] VITALS: BP 101/63
[2018-05-31] MEDS: METOCLOPRAMIDE HCL 10MG/2ML VIAL IV SCH ×5 (00:05→23:58)
[2018-05-31] MEDS: ENOXAPARIN 40MG/0.4ML SYR SUBCUT SCH ×2 (00:05→23:57)
[2018-05-31] MEDS: BLOOD SUGAR DIAGNOSTIC STRIP TEST SCH ×5 (00:05→23:58)
[2018-05-31] MEDS: ONDANSETRON HCL 4MG/2ML INJ IV PRN (03:02)
[2018-05-31 04:00] VITALS: BP 107/70
[2018-05-31] MEDS: INSULIN LISPRO 100 UNITS/ML SUBCUT SCH ×5 (05:58→23:58)
[2018-05-31 07:52] LABS: BASOPHILS % 0.8 % (0.0-2.0); EOSINOPHILS % 7.8 % (0.0-5.0); MEAN CORPUSCULAR HEMOGLOBIN 27.6 pg (28.0-32.0); MEAN CORPUSCULAR VOLUME 83.2 fL (80.0-94.0); MEAN PLATELET VOLUME 8.6 fl (7.4-10.4); MONOCYTES % 14.4 % (2.0-8.0); PLATELET 415 x1000/uL (130-400); RED BLOOD CELL COUNT 3.84 mill/uL (4.7-6.1); RED CELL DISTRIBUTION WIDTH 14.9 % (11.6-14.6)
[2018-05-31 07:59] LABS: HEMOGLOBIN. 10.6 g/dL (14.0-18.0)
[2018-05-31 08:00] VITALS: BP 108/75
[2018-05-31 08:54] LABS: CHLORIDE 104 mEq/L (98-107)
[2018-05-31] MEDS: AMLODIPINE 5MG TABLET PO SCH ×2 (09:00→20:15)
[2018-05-31] MEDS: FAMOTIDINE 20MG/2ML VIAL IV SCH ×2 (09:02→20:15)
[2018-05-31] MEDS: THIAMINE HCL 100MG TABLET PO SCH (09:02)
[2018-05-31] MEDS: DIVALPROEX SODIUM 250MG DR TABLET PO SCH ×3 (09:02→17:22)
[2018-05-31] MEDS: LOSARTAN POTASSIUM 25 MG TABLET PO SCH (09:03)
[2018-05-31] MEDS: ASPIRIN 81MG EC TABLET PO SCH (09:03)
[2018-05-31] MEDS: HYDROCHLOROTHIAZIDE 25MG TABLET PO SCH (09:03)
[2018-05-31] MEDS: MULTIVITAMINS,THER W-MINERALS TABLET PO SCH (09:03)
[2018-05-31] MEDS: FOLIC ACID 1MG TABLET PO SCH (09:03)
[2018-05-31] MEDS: BISACODYL 10MG SUPP PR SCH ×2 (09:03→20:15)
[2018-05-31] MEDS: MORPHINE SULFATE 4 MG/ML CPJ (NOT FOR IM USE) IV PRN ×4 (09:43→23:58)
[2018-05-31] MEDS: INSULIN GLARGINE UD 100 UNITS/ML SYR SUBCUT SCH (10:45)
[2018-05-31 12:05] VITALS: BP 106/70
[2018-05-31 20:00] VITALS: BP 109/79
[2018-05-31] MEDS: QUETIAPINE FUMARATE 25MG TABLET PO SCH (20:15)
[2018-06-01] VITALS: BP 105/65
[2018-06-01 04:00] VITALS: BP 107/71
[2018-06-01] MEDS: METOCLOPRAMIDE HCL 10MG/2ML VIAL IV SCH ×3 (05:07→17:33)
[2018-06-01] MEDS: INSULIN LISPRO 100 UNITS/ML SUBCUT SCH ×3 (05:12→17:33)
[2018-06-01] MEDS: BLOOD SUGAR DIAGNOSTIC STRIP TEST SCH ×3 (05:12→17:33)
[2018-06-01 08:00] VITALS: BP 108/68
[2018-06-01] MEDS: FAMOTIDINE 20MG/2ML VIAL IV SCH ×2 (08:49→20:34)
[2018-06-01] MEDS: THIAMINE HCL 100MG TABLET PO SCH (08:50)
[2018-06-01] MEDS: BISACODYL 10MG SUPP PR SCH ×2 (08:50→20:34)
[2018-06-01] MEDS: AMLODIPINE 5MG TABLET PO SCH ×2 (08:50→20:34)
[2018-06-01] MEDS: DIVALPROEX SODIUM 250MG DR TABLET PO SCH ×3 (08:50→17:33)
[2018-06-01] MEDS: ASPIRIN 81MG EC TABLET PO SCH (08:50)
[2018-06-01] MEDS: FOLIC ACID 1MG TABLET PO SCH (08:50)
[2018-06-01] MEDS: HYDROCHLOROTHIAZIDE 25MG TABLET PO SCH (08:50)
[2018-06-01] MEDS: MULTIVITAMINS,THER W-MINERALS TABLET PO SCH (08:50)
[2018-06-01] MEDS: LOSARTAN POTASSIUM 25 MG TABLET PO SCH (08:50)
[2018-06-01] MEDS: MORPHINE SULFATE 4 MG/ML CPJ (NOT FOR IM USE) IV PRN ×2 (09:49→14:21)
[2018-06-01] MEDS: INSULIN GLARGINE UD 100 UNITS/ML SYR SUBCUT SCH (09:57)
[2018-06-01 11:23] LABS: CHLORIDE 107 mEq/L (98-107)
[2018-06-01 12:00] VITALS: BP 116/75
[2018-06-01 13:08] LABS: EOSINOPHILS % 4.4 % (0.0-5.0); HEMATOCRIT. 32.7 % (42.0-52.0); HEMOGLOBIN. 10.7 g/dL (14.0-18.0); LYMPHOCYTES % 30.4 % (20.0-50.0); MEAN CORPUSCULAR HEMOGLOBIN 27.5 pg (28.0-32.0); MEAN PLATELET VOLUME 8.6 fl (7.4-10.4); MONOCYTES % 13.9 % (2.0-8.0); NEUTROPHILS % 50.3 % (40.0-76.0); PLATELET 405 x1000/uL (130-400); RED BLOOD CELL COUNT 3.89 mill/uL (4.7-6.1); RED CELL DISTRIBUTION WIDTH 14.8 % (11.6-14.6)
[2018-06-01 16:00] VITALS: BP 107/69
[2018-06-01 20:00] VITALS: BP 150/94
[2018-06-01] MEDS: QUETIAPINE FUMARATE 25MG TABLET PO SCH (20:34)
[2018-06-01] MEDS: ENOXAPARIN 40MG/0.4ML SYR SUBCUT SCH (23:00)
[2018-06-02] VITALS: BP 110/57
[2018-06-02] MEDS: BLOOD SUGAR DIAGNOSTIC STRIP TEST SCH ×3 (00:12→12:26)
[2018-06-02] MEDS: INSULIN LISPRO 100 UNITS/ML SUBCUT SCH ×3 (00:17→12:00)
[2018-06-02] MEDS: METOCLOPRAMIDE HCL 10MG/2ML VIAL IV SCH ×3 (06:00→12:26)
[2018-06-02 08:00] VITALS: BP 110/69
[2018-06-02] MEDS: FAMOTIDINE 20MG/2ML VIAL IV SCH (08:57)
[2018-06-02] MEDS: AMLODIPINE 5MG TABLET PO SCH (08:58)
[2018-06-02] MEDS: HYDROCHLOROTHIAZIDE 25MG TABLET PO SCH (08:59)
[2018-06-02] MEDS: MULTIVITAMINS,THER W-MINERALS TABLET PO SCH (08:59)
[2018-06-02] MEDS: BISACODYL 10MG SUPP PR SCH (08:59)
[2018-06-02] MEDS: DIVALPROEX SODIUM 250MG DR TABLET PO SCH ×2 (08:59→12:26)
[2018-06-02] MEDS: LOSARTAN POTASSIUM 25 MG TABLET PO SCH (08:59)
[2018-06-02] MEDS: ASPIRIN 81MG EC TABLET PO SCH (08:59)
[2018-06-02] MEDS: FOLIC ACID 1MG TABLET PO SCH (08:59)
[2018-06-02] MEDS: THIAMINE HCL 100MG TABLET PO SCH (08:59)
[2018-06-02] MEDS: MORPHINE SULFATE 4 MG/ML CPJ (NOT FOR IM USE) IV PRN ×2 (09:18→13:21)
[2018-06-02] MEDS: INSULIN GLARGINE UD 100 UNITS/ML SYR SUBCUT SCH (09:20)
[2018-06-02 12:00] VITALS: BP 104/73
[2018-06-02 15:47] VITALS: BP 104/73
[2018-06-02 16:00] VITALS: BP 123/87
== END 2018-06-02 16:36 | disposition home or self-care (01) | DRG 710 ==
LOC: ER 11:15 → 7WST 13:08 → EDBEDREQTM 14:06 → EDBEDREQ 14:06 → ENRESERV 14:26 → ER 16:10 → 5EST 05-13 16:48 → 7WST 05-28 15:45
PROVIDERS: ADMIT Internal Medicine; ATTEND Internal Medicine
PROC: 0DTH0ZZ Resection of Cecum, Open Approach (ICD-10-PCS; 2018-05-15)
PROC: 0DBB0ZZ Excision of Ileum, Open Approach (ICD-10-PCS; 2018-05-15)
PROC: 0DN80ZZ Release Small Intestine, Open Approach (ICD-10-PCS; principal; 2018-05-15 18:00)
PROC: 02HV33Z Insertion of Infusion Device into Superior Vena Cava, Percutaneous Approach (ICD-10-PCS; 2018-05-17)
PROC: B548ZZA Ultrasonography of Superior Vena Cava, Guidance (ICD-10-PCS; 2018-05-17)
PROC: 0D9670Z Drainage of Stomach with Drainage Device, Via Natural or Artificial Opening (ICD-10-PCS; 2018-05-21)
DX: A41.9 Sepsis, unspecified organism (principal); J18.9 Pneumonia, unspecified organism; G92 Toxic encephalopathy; K56.51 Intestinal adhesions [bands], with partial obstruction; E72.20 Disorder of urea cycle metabolism, unspecified; I48.91 Unspecified atrial fibrillation; K56.7 Ileus, unspecified; E86.0 Dehydration; E87.6 Hypokalemia; I10 Essential (primary) hypertension; E11.9 Type 2 diabetes mellitus without complications; G40.909 Epilepsy, unspecified, not intractable, without status epilepticus; Z96.652 Presence of left artificial knee joint; M19.90 Unspecified osteoarthritis, unspecified site; M94.0 Chondrocostal junction syndrome [Tietze]; F19.10 Other psychoactive substance abuse, uncomplicated; J98.11 Atelectasis; E11.65 Type 2 diabetes mellitus with hyperglycemia; F17.200 Nicotine dependence, unspecified, uncomplicated; G47.00 Insomnia, unspecified; G89.29 Other chronic pain; L89.899 Pressure ulcer of other site, unspecified stage; Z79.84 Long term (current) use of oral hypoglycemic drugs; Z79.899 Other long term (current) drug therapy; Z82.49 Family history of ischemic heart disease and other diseases of the circulatory system; Z86.73 Personal history of transient ischemic attack (TIA), and cerebral infarction without residual deficits; Z88.0 Allergy status to penicillin; Z88.8 Allergy status to other drugs, medicaments and biological substances
CPT/HCPCS: 36415; 36569; 70551; 71045; 71275; 74018; 74176; 76937; 78452; 80048; 80061; 80165; 80305; 82140; 82553; 82607; 82746; 82962; 83036; 83615; 83735; 83880; 84100; 84145; 84439; 84443; 84478; 84481; 84484; 85379; 86850; 86900; 86920; 87389; 88307; 88329; 93005; 93017; 93306; 96361; 96374; 96375; 97116; 97162; 97164; 97530; 99291; A4216; A9505; C1725; C1893; C9113; G0482; J0330; J0694; J1200; J1642; J1650; J1815; J1956; J2060; J2250; J2270; J2370; J2405; J2704; J2710; J2765; J2785; J3010; J3490; J7030; J7040; J7050; J7060; Q9963; Q9967

== ENCOUNTER 2018-06-05 06:43 | Emergency (ER) | payer MEDICAID ==
[~2018-06-05] VITALS: Ht 180.3 cm; Wt 70.0 kg
[~2018-06-05 06:43] MED LIST changes: +DIVA500T3 MT; +MELA10CA MT; +QUET25TA MT
[2018-06-05 07:30] VITALS: BP 127/76
[2018-06-05] MEDS ORDERED: ONDANSETRON 4MG ODT PO ONE (07:30)
[2018-06-05] MEDS ORDERED: ACETAMINOPHEN 325MG TABLET PO ONE (07:30)
[2018-06-05 08:20] LABS: BASOPHILS % 1.1 % (0.0-2.0); EOSINOPHILS % 7.4 % (0.0-5.0); LYMPHOCYTES % 31.4 % (20.0-50.0); MEAN CORPUSCULAR HEMOGLOBIN 27.6 pg (28.0-32.0); MEAN CORPUSCULAR VOLUME 84.8 fL (80.0-94.0); MEAN PLATELET VOLUME 8.1 fl (7.4-10.4); MONOCYTES % 11.1 % (2.0-8.0); PLATELET 428 x1000/uL (130-400); RED BLOOD CELL COUNT 4.36 mill/uL (4.7-6.1); RED CELL DISTRIBUTION WIDTH 15.4 % (11.6-14.6)
[2018-06-05 08:21] LABS: CHLORIDE 104 mEq/L (98-107)
== END 2018-06-05 08:29 | disposition left against medical advice (07) ==
LOC: ER 07:28
DX: T81.49XA Infection following a procedure, other surgical site, initial encounter (principal); R00.0 Tachycardia, unspecified; E11.9 Type 2 diabetes mellitus without complications; I10 Essential (primary) hypertension; F17.200 Nicotine dependence, unspecified, uncomplicated; Z88.0 Allergy status to penicillin; Z96.659 Presence of unspecified artificial knee joint; Z98.890 Other specified postprocedural states; Z91.048 Other nonmedicinal substance allergy status
CPT/HCPCS: 36415; 80053; 83605; 85025; 99283; Q0162

== ENCOUNTER 2018-06-17 12:22 | Emergency (ER) | payer MEDICAID ==
[~2018-06-17] VITALS: Ht 180.3 cm; Wt 70.0 kg
[2018-06-17 12:48] VITALS: BP 133/94
== END 2018-06-17 14:17 | disposition left against medical advice (07) ==
LOC: ER 12:22
DX: R51 Headache (principal); Z53.21 Procedure and treatment not carried out due to patient leaving prior to being seen by health care provider

== ENCOUNTER 2018-07-06 15:54 | Emergency (ER) | payer MEDICAID ==
[~2018-07-06] VITALS: Ht 180.3 cm; Wt 70.0 kg
[2018-07-06 17:48] LABS: BASOPHILS % 1.1 % (0.0-2.0); EOSINOPHILS % 6.9 % (0.0-5.0); HEMATOCRIT. 35.1 % (42.0-52.0); HEMOGLOBIN. 11.3 g/dL (14.0-18.0); LYMPHOCYTES % 43.4 % (20.0-50.0); MEAN CORPUSCULAR HEMOGLOBIN 27.6 pg (28.0-32.0); MEAN CORPUSCULAR VOLUME 85.8 fL (80.0-94.0); MEAN PLATELET VOLUME 8.1 fl (7.4-10.4); MONOCYTES % 10.3 % (2.0-8.0); NEUTROPHILS % 38.3 % (40.0-76.0); PLATELET 249 x1000/uL (130-400); RED BLOOD CELL COUNT 4.09 mill/uL (4.7-6.1); RED CELL DISTRIBUTION WIDTH 17.2 % (11.6-14.6)
[2018-07-06 17:51] LABS: CHLORIDE 100 mEq/L (98-107)
[2018-07-06 18:15] VITALS: BP 122/78
[2018-07-06 18:19] LABS: CLARITY URINE CLEAR (CLEAR); COLOR URINE YELLOW (YELLOW); KETONES URINE TRACE (NEGATIVE); LEUKOCYTE ESTERASE URINE NEGATIVE (NEGATIVE); NITRITE URINE NEGATIVE (NEGATIVE); OCCULT BLOOD URINE NEGATIVE (NEGATIVE); PH URINE 7.5 (4.5-8.0); PROTEIN URINE NEGATIVE (NEGATIVE)
== END 2018-07-06 18:43 | disposition home or self-care (01) ==
LOC: ER 15:54
DX: R10.815 Periumbilic abdominal tenderness (principal); E11.9 Type 2 diabetes mellitus without complications; I10 Essential (primary) hypertension; F31.9 Bipolar disorder, unspecified; F17.200 Nicotine dependence, unspecified, uncomplicated; Z88.0 Allergy status to penicillin; Z88.8 Allergy status to other drugs, medicaments and biological substances; Z79.899 Other long term (current) drug therapy
CPT/HCPCS: 36415; 74176; 99284

== ENCOUNTER 2018-07-13 20:07 | Emergency (ER) | payer MEDICAID ==
[~2018-07-13] VITALS: Ht 180.3 cm; Wt 73.7 kg
[2018-07-14 04:56] LABS: BASOPHILS % 1.3 % (0.0-2.0); EOSINOPHILS % 5.2 % (0.0-5.0); HEMATOCRIT. 36.6 % (42.0-52.0); HEMOGLOBIN. 11.7 g/dL (14.0-18.0); LYMPHOCYTES % 41.5 % (20.0-50.0); MEAN CORPUSCULAR HEMOGLOBIN 27.3 pg (28.0-32.0); MEAN CORPUSCULAR VOLUME 85.7 fL (80.0-94.0); MEAN PLATELET VOLUME 7.8 fl (7.4-10.4); MONOCYTES % 13.1 % (2.0-8.0); NEUTROPHILS % 38.9 % (40.0-76.0); PLATELET 263 x1000/uL (130-400); RED BLOOD CELL COUNT 4.27 mill/uL (4.7-6.1); RED CELL DISTRIBUTION WIDTH 17.1 % (11.6-14.6)
[2018-07-14 05:01] LABS: CHLORIDE 105 mEq/L (98-107)
[2018-07-14 07:30] VITALS: BP 141/80
== END 2018-07-14 09:52 | disposition left against medical advice (07) ==
LOC: ER 20:07
DX: Z00.00 Encounter for general adult medical examination without abnormal findings (principal); F17.210 Nicotine dependence, cigarettes, uncomplicated; I10 Essential (primary) hypertension; E11.9 Type 2 diabetes mellitus without complications; Z79.84 Long term (current) use of oral hypoglycemic drugs; Z98.890 Other specified postprocedural states; Z88.8 Allergy status to other drugs, medicaments and biological substances; Z88.0 Allergy status to penicillin
CPT/HCPCS: 36415; 99283

== ENCOUNTER 2018-11-14 09:15 | Emergency (ER) | payer MEDICAID ==
[~2018-11-14] VITALS: Ht 180.3 cm; Wt 76.0 kg
[2018-11-14 10:28] VITALS: BP 135/88
[2018-11-14] MEDS ORDERED: MORPHINE SULFATE 10 MG/ML CPJ IM ONE (10:30)
[2018-11-14] MEDS ORDERED: ONDANSETRON 4MG ODT PO ONE (10:30)
== END 2018-11-14 12:03 | disposition home or self-care (01) ==
LOC: ER 09:16
DX: G89.29 Other chronic pain (principal); M25.562 Pain in left knee; F31.9 Bipolar disorder, unspecified; E11.9 Type 2 diabetes mellitus without complications; I10 Essential (primary) hypertension; F17.200 Nicotine dependence, unspecified, uncomplicated; Z98.890 Other specified postprocedural states; Z88.0 Allergy status to penicillin; Z88.8 Allergy status to other drugs, medicaments and biological substances; Z79.899 Other long term (current) drug therapy; Z79.84 Long term (current) use of oral hypoglycemic drugs; Z96.659 Presence of unspecified artificial knee joint
CPT/HCPCS: 96372; 99283; J2270; Q0162

== ENCOUNTER 2018-12-06 09:41 | Emergency (ER) | payer MEDICAID ==
[~2018-12-06] VITALS: Ht 172.7 cm; Wt 78.0 kg
[2018-12-06 10:54] LABS: BASOPHILS % 0.7 % (0.0-2.0); EOSINOPHILS % 3.6 % (0.0-5.0); HEMATOCRIT. 38.1 % (42.0-52.0); HEMOGLOBIN. 12.6 g/dL (14.0-18.0); MEAN CORPUSCULAR HEMOGLOBIN 26.9 pg (28.0-32.0); MEAN CORPUSCULAR VOLUME 81.4 fL (80.0-94.0); MEAN PLATELET VOLUME 7.5 fl (7.4-10.4); MONOCYTES % 10.8 % (2.0-8.0); NEUTROPHILS % 50.9 % (40.0-76.0); PLATELET 237 x1000/uL (130-400); RED BLOOD CELL COUNT 4.68 mill/uL (4.7-6.1)
[2018-12-06 11:00] LABS: CHLORIDE 107 mEq/L (98-107)
[2018-12-06 11:12] LABS: CLARITY URINE CLEAR (CLEAR); COLOR URINE YELLOW (YELLOW); KETONES URINE NEGATIVE (NEGATIVE); LEUKOCYTE ESTERASE URINE NEGATIVE (NEGATIVE); NITRITE URINE NEGATIVE (NEGATIVE); OCCULT BLOOD URINE NEGATIVE (NEGATIVE); PH URINE 7.5 (4.5-8.0); PROTEIN URINE NEGATIVE (NEGATIVE); SPECIFIC GRAVITY URINE 1.015 (1.005-1.030)
[2018-12-06 13:28] VITALS: BP 166/97
== END 2018-12-06 13:40 | disposition home or self-care (01) ==
LOC: ER 09:41
DX: R42 Dizziness and giddiness (principal); F31.9 Bipolar disorder, unspecified; E11.9 Type 2 diabetes mellitus without complications; I10 Essential (primary) hypertension; Z98.890 Other specified postprocedural states; F17.200 Nicotine dependence, unspecified, uncomplicated; Z79.899 Other long term (current) drug therapy; Z88.0 Allergy status to penicillin; Z88.8 Allergy status to other drugs, medicaments and biological substances
CPT/HCPCS: 36415; 71045; 84484; 93005; 99284

== ENCOUNTER 2018-12-23 19:50 | Emergency (ER) | payer MEDICAID ==
[~2018-12-23] VITALS: Ht 180.3 cm; Wt 78.0 kg
[2018-12-23] MEDS ORDERED: ONDANSETRON HCL 4MG/2ML INJ IV STA (20:46)
[2018-12-23] MEDS ORDERED: FAMOTIDINE 20MG/2ML VIAL IV STA (20:46)
[2018-12-23] MEDS ORDERED: SODIUM CHLORIDE 0.9% 1,000 ML IV ONE (20:46)
[2018-12-23 21:08] LABS: BASOPHILS % 0.6 % (0.0-2.0); EOSINOPHILS % 4.6 % (0.0-5.0); HEMATOCRIT. 37.5 % (42.0-52.0); HEMOGLOBIN. 12.6 g/dL (14.0-18.0); LYMPHOCYTES % 38.2 % (20.0-50.0); MEAN CORPUSCULAR HEMOGLOBIN 27.2 pg (28.0-32.0); MEAN CORPUSCULAR VOLUME 80.8 fL (80.0-94.0); MEAN PLATELET VOLUME 7.4 fl (7.4-10.4); MONOCYTES % 11.7 % (2.0-8.0); NEUTROPHILS % 44.9 % (40.0-76.0); PLATELET 241 x1000/uL (130-400); RED BLOOD CELL COUNT 4.64 mill/uL (4.7-6.1)
[2018-12-23 21:11] LABS: CHLORIDE 97 mEq/L (98-107)
[2018-12-23 21:14] LABS: ETHANOL BLOOD < 10 mg/dL; PROTHROMBIN TIME 10.1 sec (9.6-11.0)
[2018-12-23 22:23] LABS: CLARITY URINE CLEAR (CLEAR); COLOR URINE YELLOW (YELLOW); KETONES URINE NEGATIVE (NEGATIVE); LEUKOCYTE ESTERASE URINE NEGATIVE (NEGATIVE); NITRITE URINE NEGATIVE (NEGATIVE); OCCULT BLOOD URINE NEGATIVE (NEGATIVE); PH URINE >=9.0 (4.5-8.0); PROTEIN URINE NEGATIVE (NEGATIVE); SPECIFIC GRAVITY URINE 1.015 (1.005-1.030); UROBILINOGEN URINE 0.2 E.U./dL (0.2-1.0)
[2018-12-23 22:42] LABS: *AMPHETAMINES SCREEN URINE NEGATIVE (NEGATIVE); *BARBITURATES SCREEN URINE NEGATIVE (NEGATIVE); *BENZODIAZEPINES SCREEN URINE NEGATIVE (NEGATIVE); *COCAINE SCREEN URINE NEGATIVE (NEGATIVE); METHADONE URINE SCREEN NEGATIVE (NEGATIVE)
[2018-12-23 22:43] LABS: CANNABINOID URINE SCREEN NEGATIVE (NEGATIVE); OPIATES URINE SCREEN NEGATIVE (NEGATIVE); PHENCYCLIDINE URINE SCREEN NEGATIVE (NEGATIVE)
[2018-12-23 23:17] VITALS: BP 165/96
== END 2018-12-23 23:19 | disposition home or self-care (01) ==
LOC: ER 19:50
DX: G89.29 Other chronic pain (principal); R10.13 Epigastric pain; I10 Essential (primary) hypertension; R11.0 Nausea; F31.9 Bipolar disorder, unspecified; E11.9 Type 2 diabetes mellitus without complications; F17.200 Nicotine dependence, unspecified, uncomplicated; Z98.890 Other specified postprocedural states; Z88.0 Allergy status to penicillin; Z88.3 Allergy status to other anti-infective agents; Z79.899 Other long term (current) drug therapy; Z87.19 Personal history of other diseases of the digestive system
CPT/HCPCS: 36415; 74176; 80053; 80305; 80320; 81003; 83690; 85025; 85610; 96374; 96375; 99284; J2405; J3490; J7030; Z7610; G0480

== ENCOUNTER 2019-02-20 13:56 | Emergency (ER) | payer MEDICAID ==
[~2019-02-20] VITALS: Ht 180.3 cm; Wt 78.0 kg
[2019-02-20 14:14] VITALS: BP 128/90
[2019-02-20] MEDS ORDERED: KETOROLAC 30MG/ML VIAL IM ONE (16:00)
== END 2019-02-20 16:52 | disposition home or self-care (01) ==
LOC: ER 13:56
DX: M25.562 Pain in left knee (principal); F17.200 Nicotine dependence, unspecified, uncomplicated; F31.9 Bipolar disorder, unspecified; E11.9 Type 2 diabetes mellitus without complications; I10 Essential (primary) hypertension; Z79.899 Other long term (current) drug therapy; Z88.0 Allergy status to penicillin; Z88.8 Allergy status to other drugs, medicaments and biological substances
CPT/HCPCS: 99281

== ENCOUNTER 2019-03-18 11:30 | Emergency (ER) | payer MEDICAID ==
[~2019-03-18] VITALS: Ht 180.3 cm; Wt 77.0 kg
[2019-03-18 13:37] LABS: CHLORIDE 106 mEq/L (98-107)
[2019-03-18 13:39] LABS: BASOPHILS % 0.8 % (0.0-2.0); EOSINOPHILS % 8.4 % (0.0-5.0); LYMPHOCYTES % 48.6 % (20.0-50.0); MEAN CORPUSCULAR VOLUME 83.1 fL (80.0-94.0); MEAN PLATELET VOLUME 7.9 fl (7.4-10.4); MONOCYTES % 9.8 % (2.0-8.0); NEUTROPHILS % 32.4 % (40.0-76.0); PLATELET 260 x1000/uL (130-400); RED BLOOD CELL COUNT 4.81 mill/uL (4.7-6.1); RED CELL DISTRIBUTION WIDTH 16.4 % (11.6-14.6)
[2019-03-18 13:41] LABS: PARTIAL THROMBOPLASTIN TIME 25.2 sec (23.4-31.0)
[2019-03-18] MEDS ORDERED: MECLIZINE 25MG TABLET PO ONE (14:30)
[2019-03-18 17:30] VITALS: BP 127/76
== END 2019-03-18 17:39 | disposition home or self-care (01) ==
LOC: ER 11:30
DX: H53.8 Other visual disturbances (principal); R51 Headache; R42 Dizziness and giddiness; E11.649 Type 2 diabetes mellitus with hypoglycemia without coma; I10 Essential (primary) hypertension; F31.9 Bipolar disorder, unspecified; F17.200 Nicotine dependence, unspecified, uncomplicated; F20.9 Schizophrenia, unspecified; Z71.6 Tobacco abuse counseling; Z88.0 Allergy status to penicillin; Z88.6 Allergy status to analgesic agent; Z98.890 Other specified postprocedural states
CPT/HCPCS: 36415; 70450; 71045; 80053; 80165; 83880; 84484; 85025; 85610; 85730; 93005; 99284; 99406; J8597; Z7610

== ENCOUNTER 2019-06-08 09:36 | Emergency (ER) | payer MEDICAID ==
[~2019-06-08] VITALS: Ht 180.3 cm; Wt 78.0 kg
[2019-06-08 11:38] VITALS: BP 122/83
== END 2019-06-08 11:35 | disposition home or self-care (01) ==
LOC: ER 09:36
DX: L02.31 Cutaneous abscess of buttock (principal); F20.9 Schizophrenia, unspecified; E11.9 Type 2 diabetes mellitus without complications; I10 Essential (primary) hypertension; Z88.0 Allergy status to penicillin; Z79.84 Long term (current) use of oral hypoglycemic drugs; Z88.8 Allergy status to other drugs, medicaments and biological substances
CPT/HCPCS: 99283

== ENCOUNTER 2019-07-02 09:30 | Emergency (ER) | payer MEDICAID ==
[~2019-07-02] VITALS: Ht 180.3 cm; Wt 75.0 kg
[2019-07-02 09:39] VITALS: BP 145/83
== END 2019-07-02 21:08 | disposition left against medical advice (07) ==
LOC: ER 09:42
DX: Z53.21 Procedure and treatment not carried out due to patient leaving prior to being seen by health care provider (principal); F31.9 Bipolar disorder, unspecified; I10 Essential (primary) hypertension; F20.9 Schizophrenia, unspecified; E11.9 Type 2 diabetes mellitus without complications; Z88.0 Allergy status to penicillin
CPT/HCPCS: 93005

== ENCOUNTER 2019-07-04 13:02 | Emergency (ER) | payer MEDICAID ==
[~2019-07-04] VITALS: Ht 177.8 cm; Wt 77.0 kg
[2019-07-04 16:18] VITALS: BP 129/84
== END 2019-07-04 17:39 | disposition left against medical advice (07) ==
LOC: ER 13:02
DX: Z53.21 Procedure and treatment not carried out due to patient leaving prior to being seen by health care provider (principal); F31.9 Bipolar disorder, unspecified; I10 Essential (primary) hypertension; E11.9 Type 2 diabetes mellitus without complications; F20.9 Schizophrenia, unspecified
CPT/HCPCS: A4217; Z7610

== ENCOUNTER 2019-12-09 09:31 | Emergency (ER) | payer MEDICAID, OTHER ==
[~2019-12-09] VITALS: Ht 182.9 cm; Wt 77.0 kg
[2019-12-09 11:43] LABS: CLARITY URINE CLEAR (CLEAR); COLOR URINE YELLOW (YELLOW); KETONES URINE NEGATIVE (NEGATIVE); LEUKOCYTE ESTERASE URINE NEGATIVE (NEGATIVE); NITRITE URINE NEGATIVE (NEGATIVE); OCCULT BLOOD URINE NEGATIVE (NEGATIVE); PH URINE 8.5 (4.5-8.0); PROTEIN URINE NEGATIVE (NEGATIVE); SPECIFIC GRAVITY URINE 1.009 (1.005-1.030); UROBILINOGEN URINE 0.2 E.U./dL (0.2-1.0)
[2019-12-09 12:26] VITALS: BP 133/85
== END 2019-12-09 12:29 | disposition home or self-care (01) ==
LOC: ER 09:31
DX: R30.0 Dysuria (principal); E11.9 Type 2 diabetes mellitus without complications; I10 Essential (primary) hypertension; F20.9 Schizophrenia, unspecified; F31.9 Bipolar disorder, unspecified; J44.9 Chronic obstructive pulmonary disease, unspecified; Z98.890 Other specified postprocedural states; Z88.0 Allergy status to penicillin; Z79.84 Long term (current) use of oral hypoglycemic drugs; Z88.8 Allergy status to other drugs, medicaments and biological substances
CPT/HCPCS: 81003; 99283

== ENCOUNTER 2019-12-23 12:19 | Emergency (ER) | payer OTHER ==
[~2019-12-23] VITALS: Ht 180.3 cm; Wt 79.0 kg
[2019-12-23] MEDS ORDERED: ONDANSETRON HCL 4MG/2ML INJ IV STA (14:58)
[2019-12-23] MEDS ORDERED: SODIUM CHLORIDE 0.9% 1,000 ML IV ONE (14:58)
[2019-12-23] MEDS ORDERED: MORPHINE SULFATE 4 MG/ML CPJ (NOT FOR IM USE) IV STA (14:58)
[2019-12-23 15:30] LABS: BASOPHILS % 0.9 % (0.0-2.0); HEMATOCRIT. 44.7 % (42.0-52.0); HEMOGLOBIN. 14.6 g/dL (14.0-18.0); LYMPHOCYTES % 38.2 % (20.0-50.0); MEAN CORPUSCULAR HEMOGLOBIN 27.7 pg (28.0-32.0); MEAN PLATELET VOLUME 7.7 fl (7.4-10.4); MONOCYTES % 8.3 % (2.0-8.0); NEUTROPHILS % 48.6 % (40.0-76.0); PLATELET 245 x1000/uL (130-400); RED BLOOD CELL COUNT 5.26 mill/uL (4.7-6.1); RED CELL DISTRIBUTION WIDTH 15.2 % (11.6-14.6)
[2019-12-23 15:41] LABS: CHLORIDE 109 mEq/L (98-107)
[2019-12-23 16:04] LABS: PROTHROMBIN TIME 10.5 sec (9.6-11.0)
[2019-12-23 16:06] LABS: CLARITY URINE CLEAR (CLEAR); COLOR URINE YELLOW (YELLOW); KETONES URINE NEGATIVE (NEGATIVE); LEUKOCYTE ESTERASE URINE NEGATIVE (NEGATIVE); NITRITE URINE NEGATIVE (NEGATIVE); OCCULT BLOOD URINE NEGATIVE (NEGATIVE); PH URINE 7.5 (4.5-8.0); PROTEIN URINE NEGATIVE (NEGATIVE); SPECIFIC GRAVITY URINE 1.008 (1.005-1.030); UROBILINOGEN URINE 0.2 E.U./dL (0.2-1.0)
[2019-12-23] MEDS ORDERED: KETOROLAC 30MG/ML VIAL IV ONE (17:45)
[2019-12-23] MEDS ORDERED: KETOROLAC 60MG/2ML VIAL IM ONE (18:15)
[2019-12-23 18:45] VITALS: BP 153/108
== END 2019-12-23 19:13 | disposition home or self-care (01) ==
LOC: ER 12:19
DX: M54.32 Sciatica, left side (principal); F31.9 Bipolar disorder, unspecified; J44.9 Chronic obstructive pulmonary disease, unspecified; E11.9 Type 2 diabetes mellitus without complications; I10 Essential (primary) hypertension; F20.9 Schizophrenia, unspecified; F17.200 Nicotine dependence, unspecified, uncomplicated; Z88.6 Allergy status to analgesic agent; Z88.0 Allergy status to penicillin
CPT/HCPCS: 36415; 74176; 80053; 81003; 85025; 85610; 96372; 96374; 96375; 99285; J1885; J2270; J2405; J7030

== ENCOUNTER 2020-01-10 10:19 | Emergency (ER) | payer OTHER ==
[~2020-01-10] VITALS: Ht 180.3 cm; Wt 85.0 kg
[2020-01-10] MEDS ORDERED: KETOROLAC 60MG/2ML VIAL IM STA (12:16)
[2020-01-10 13:05] VITALS: BP 122/87
== END 2020-01-10 13:28 | disposition home or self-care (01) ==
LOC: ER 11:04
DX: M54.5 Low back pain (principal); Z88.0 Allergy status to penicillin; Z88.8 Allergy status to other drugs, medicaments and biological substances
CPT/HCPCS: 96372; 99283; J1885

== ENCOUNTER 2020-01-30 08:30 | Emergency (ER) | payer OTHER ==
[~2020-01-30] VITALS: Ht 180.3 cm; Wt 77.2 kg
[2020-01-30] MEDS ORDERED: TRAMADOL 50MG TABLET PO ONE (09:30)
[2020-01-30 11:20] VITALS: BP 136/87
== END 2020-01-30 11:23 | disposition home or self-care (01) ==
LOC: ER 08:47
DX: M79.662 Pain in left lower leg (principal); M54.5 Low back pain; H40.9 Unspecified glaucoma; I10 Essential (primary) hypertension; H26.9 Unspecified cataract; Z88.0 Allergy status to penicillin; Z88.6 Allergy status to analgesic agent
CPT/HCPCS: 93971; 99284

== ENCOUNTER 2020-03-26 10:01 | Emergency (ER) | payer OTHER ==
[~2020-03-26] VITALS: Ht 180.3 cm; Wt 77.0 kg
[2020-03-26 11:00] VITALS: BP 146/85
[2020-03-26] MEDS ORDERED: TRAMADOL 50MG TABLET PO ONE (11:00)
== END 2020-03-26 11:02 | disposition home or self-care (01) ==
LOC: ER 10:26
DX: M25.562 Pain in left knee (principal); G89.29 Other chronic pain; E11.9 Type 2 diabetes mellitus without complications; I10 Essential (primary) hypertension; H40.9 Unspecified glaucoma; Z88.0 Allergy status to penicillin; Z88.6 Allergy status to analgesic agent
CPT/HCPCS: 99283

== ENCOUNTER 2020-03-27 11:04 | Emergency (ER) | payer OTHER ==
[~2020-03-27] VITALS: Ht 180.3 cm; Wt 85.0 kg
[2020-03-27] MEDS ORDERED: TRAMADOL 50MG TABLET PO ONE (12:00)
[2020-03-27] MEDS ORDERED: TERBUTALINE SULFATE 1MG/ML VIAL SUBCUT ONE (12:00)
[2020-03-27] MEDS ORDERED: PREDNISONE 20MG TABLET PO ONE (12:00)
[2020-03-27] MEDS ORDERED: ALBUTEROL 6.7GM HFA INHALER ORI ONE (12:00)
[2020-03-27 12:14] LABS: BASOPHILS % 0.3 % (0.0-2.0); EOSINOPHILS % 1.6 % (0.0-5.0); HEMATOCRIT. 38.5 % (42.0-52.0); HEMOGLOBIN. 12.4 g/dL (14.0-18.0); LYMPHOCYTES % 29.4 % (20.0-50.0); MEAN CORPUSCULAR HEMOGLOBIN 27.4 pg (28.0-32.0); MEAN CORPUSCULAR VOLUME 85.2 fL (80.0-94.0); MONOCYTES % 6.3 % (2.0-8.0); NEUTROPHILS % 62.4 % (40.0-76.0); PLATELET 196 x1000/uL (130-400); RED BLOOD CELL COUNT 4.52 mill/uL (4.7-6.1); RED CELL DISTRIBUTION WIDTH 15.2 % (11.6-14.6)
[2020-03-27 12:21] LABS: CHLORIDE 103 mEq/L (98-107)
[2020-03-27 13:28] VITALS: BP 134/98
== END 2020-03-27 15:08 | disposition home or self-care (01) ==
LOC: ER 11:53
DX: J44.1 Chronic obstructive pulmonary disease with (acute) exacerbation (principal); E11.9 Type 2 diabetes mellitus without complications; I10 Essential (primary) hypertension; H40.9 Unspecified glaucoma; Z79.899 Other long term (current) drug therapy; Z88.0 Allergy status to penicillin
CPT/HCPCS: 36415; 71045; 80053; 83880; 84484; 85025; 93005; 94640; 96372; 99285; J3105; J7512

== ENCOUNTER 2020-04-21 09:44 | Emergency (ER) | payer OTHER ==
[~2020-04-21] VITALS: Ht 180.3 cm; Wt 77.0 kg
[2020-04-21] MEDS ORDERED: SODIUM CHLORIDE 0.9% 1,000 ML IV ONE (11:15)
[2020-04-21] MEDS ORDERED: MECLIZINE 25MG TABLET PO ONE (11:15)
[2020-04-21 11:34] LABS: BASOPHILS % 0.9 % (0.0-2.0); HEMOGLOBIN. 12.3 g/dL (14.0-18.0); MEAN CORPUSCULAR HEMOGLOBIN 27.7 pg (28.0-32.0); MEAN CORPUSCULAR VOLUME 85.6 fL (80.0-94.0); MEAN PLATELET VOLUME 8.7 fl (7.4-10.4); MONOCYTES % 10.2 % (2.0-8.0); NEUTROPHILS % 38.9 % (40.0-76.0); PLATELET 250 x1000/uL (130-400); RED BLOOD CELL COUNT 4.44 mill/uL (4.7-6.1); RED CELL DISTRIBUTION WIDTH 15.1 % (11.6-14.6)
[2020-04-21 12:08] LABS: CLARITY URINE CLEAR (CLEAR); COLOR URINE YELLOW (YELLOW); KETONES URINE NEGATIVE (NEGATIVE); LEUKOCYTE ESTERASE URINE NEGATIVE (NEGATIVE); NITRITE URINE NEGATIVE (NEGATIVE); OCCULT BLOOD URINE NEGATIVE (NEGATIVE); PROTEIN URINE NEGATIVE (NEGATIVE); SPECIFIC GRAVITY URINE 1.006 (1.005-1.030); UROBILINOGEN URINE 0.2 E.U./dL (0.2-1.0)
[2020-04-21 12:12] LABS: CHLORIDE 110 mEq/L (98-107)
[2020-04-21 12:17] LABS: ETHANOL BLOOD < 10 mg/dL
[2020-04-21 12:28] LABS: *BARBITURATES SCREEN URINE NEGATIVE (NEGATIVE)
[2020-04-21 12:29] LABS: *AMPHETAMINES SCREEN URINE NEGATIVE (NEGATIVE); *BENZODIAZEPINES SCREEN URINE NEGATIVE (NEGATIVE); *COCAINE SCREEN URINE NEGATIVE (NEGATIVE); METHADONE URINE SCREEN NEGATIVE (NEGATIVE); OPIATES URINE SCREEN NEGATIVE (NEGATIVE); PHENCYCLIDINE URINE SCREEN NEGATIVE (NEGATIVE)
[2020-04-21 12:30] LABS: CANNABINOID URINE SCREEN NEGATIVE (NEGATIVE)
[2020-04-21 13:31] VITALS: BP 138/88
== END 2020-04-21 13:33 | disposition home or self-care (01) ==
LOC: ER 09:44
DX: R42 Dizziness and giddiness (principal); J44.9 Chronic obstructive pulmonary disease, unspecified; E11.9 Type 2 diabetes mellitus without complications; I10 Essential (primary) hypertension; Z98.890 Other specified postprocedural states; Z88.0 Allergy status to penicillin; Z88.8 Allergy status to other drugs, medicaments and biological substances; Z79.899 Other long term (current) drug therapy
CPT/HCPCS: 36415; 70450; 80053; 80165; 80305; 80307; 80320; 80329; 81003; 85025; 93005; 96360; 99285; J7030; J8597; G0480

== ENCOUNTER 2020-05-02 10:06 | Emergency (ER) | payer OTHER ==
[~2020-05-02] VITALS: Ht 180.3 cm; Wt 79.0 kg
[2020-05-02 10:14] VITALS: BP 137/81
== END 2020-05-02 11:07 | disposition home or self-care (01) ==
LOC: ER 10:06
DX: M13.862 Other specified arthritis, left knee (principal); E11.9 Type 2 diabetes mellitus without complications; I10 Essential (primary) hypertension; J44.9 Chronic obstructive pulmonary disease, unspecified; H40.9 Unspecified glaucoma; F17.210 Nicotine dependence, cigarettes, uncomplicated; Z88.0 Allergy status to penicillin; Z79.84 Long term (current) use of oral hypoglycemic drugs
CPT/HCPCS: 99282

== ENCOUNTER 2020-07-11 11:47 | Emergency (ER) | payer OTHER ==
[~2020-07-11] VITALS: Ht 180.3 cm; Wt 84.0 kg
[2020-07-11 12:05] VITALS: BP 134/80
[2020-07-11 12:59] LABS: BASOPHILS % 0.9 % (0.0-2.0); EOSINOPHILS % 7.5 % (0.0-5.0); HEMATOCRIT. 40.8 % (42.0-52.0); LYMPHOCYTES % 39.8 % (20.0-50.0); MEAN CORPUSCULAR HEMOGLOBIN 26.7 pg (28.0-32.0); MEAN CORPUSCULAR VOLUME 83.7 fL (80.0-94.0); MEAN PLATELET VOLUME 8.2 fl (7.4-10.4); MONOCYTES % 7.6 % (2.0-8.0); NEUTROPHILS % 44.2 % (40.0-76.0); PLATELET 213 x1000/uL (130-400); RED BLOOD CELL COUNT 4.88 mill/uL (4.7-6.1); RED CELL DISTRIBUTION WIDTH 14.3 % (11.6-14.6)
[2020-07-11 13:05] LABS: CHLORIDE 108 mEq/L (98-107)
== END 2020-07-11 15:02 | disposition left against medical advice (07) ==
LOC: ER 11:47
DX: R06.02 Shortness of breath (principal); J98.11 Atelectasis; J44.9 Chronic obstructive pulmonary disease, unspecified; I10 Essential (primary) hypertension; E11.9 Type 2 diabetes mellitus without complications; H40.9 Unspecified glaucoma; Z03.818 Encounter for observation for suspected exposure to other biological agents ruled out; Z79.84 Long term (current) use of oral hypoglycemic drugs; Z88.8 Allergy status to other drugs, medicaments and biological substances; Z88.0 Allergy status to penicillin
CPT/HCPCS: 36415; 71045; 80053; 83880; 84484; 85025; 85379; 87635; 93005; 99285

== ENCOUNTER 2020-08-20 13:31 | Emergency (ER) | payer OTHER ==
[~2020-08-20] VITALS: Ht 180.3 cm; Wt 73.0 kg
[2020-08-20] MEDS ORDERED: KETOROLAC 60MG/2ML VIAL IM STA (14:15)
[2020-08-20 14:28] VITALS: BP 133/87
== END 2020-08-20 14:29 | disposition home or self-care (01) ==
LOC: ER 13:50
DX: M25.562 Pain in left knee (principal); M54.9 Dorsalgia, unspecified; J44.9 Chronic obstructive pulmonary disease, unspecified; I10 Essential (primary) hypertension; H40.9 Unspecified glaucoma; E11.9 Type 2 diabetes mellitus without complications; Z88.0 Allergy status to penicillin; Z88.6 Allergy status to analgesic agent
CPT/HCPCS: 99281

== ENCOUNTER 2020-12-21 11:29 | Emergency (ER) | payer OTHER, MEDICAID ==
[~2020-12-21] VITALS: Ht 180.3 cm; Wt 106.0 kg
[2020-12-21] MEDS ORDERED: ACETAMINOPHEN WITH CODEINE 300/30MG TABLET PO STA (12:26)
[2020-12-21 12:43] VITALS: BP 154/96
[2020-12-21] MEDS ORDERED: NAPR-681 PO (13:51)
[2020-12-21] MEDS ORDERED: T3 PO (13:51)
== END 2020-12-21 14:00 | disposition home or self-care (01) ==
LOC: ER 11:29
DX: M54.5 Low back pain (principal); G89.29 Other chronic pain; M47.817 Spondylosis without myelopathy or radiculopathy, lumbosacral region; M19.09 Primary osteoarthritis, other specified site; E11.9 Type 2 diabetes mellitus without complications; I10 Essential (primary) hypertension; Z88.0 Allergy status to penicillin; Z88.6 Allergy status to analgesic agent
CPT/HCPCS: 72100; 72170; 99284

== ENCOUNTER 2021-11-03 14:18 | Emergency (ER) | payer MEDICAID, OTHER ==
[~2021-11-03] VITALS: Ht 180.3 cm; Wt 77.0 kg
[~2021-11-03 14:18] MED LIST changes: +NAPR-681 PO; +T3 PO
[2021-11-03 14:26] VITALS: BP 138/84
[2021-11-03 15:34] LABS: BASOPHILS % 0.9 % (0.0-2.0); EOSINOPHILS % 2.1 % (0.0-5.0); HEMOGLOBIN. 13.4 g/dL (14.0-18.0); LYMPHOCYTES % 24.5 % (20.0-50.0); MEAN CORPUSCULAR VOLUME 79.9 fL (80.0-94.0); MEAN PLATELET VOLUME 7.6 fl (7.4-10.4); MONOCYTES % 9.9 % (2.0-8.0); NEUTROPHILS % 62.6 % (40.0-76.0); PLATELET 244 x1000/uL (130-400); RED BLOOD CELL COUNT 5.14 mill/uL (4.7-6.1); RED CELL DISTRIBUTION WIDTH 14.2 % (11.6-14.6)
[2021-11-03 15:41] LABS: CHLORIDE 111 mEq/L (98-107)
== END 2021-11-03 17:27 | disposition left against medical advice (07) ==
LOC: ER 14:18
DX: H93.19 Tinnitus, unspecified ear (principal); I10 Essential (primary) hypertension; E11.9 Type 2 diabetes mellitus without complications; Z88.0 Allergy status to penicillin; Z88.8 Allergy status to other drugs, medicaments and biological substances; Z79.899 Other long term (current) drug therapy; Z86.59 Personal history of other mental and behavioral disorders; Z98.890 Other specified postprocedural states
CPT/HCPCS: 36415; 80048; 85025; 99283

== ENCOUNTER 2024-06-25 13:24 | Emergency (ER) | payer OTHER, MEDICAID ==
[~2024-06-25] VITALS: Ht 180.3 cm; Wt 69.8 kg
[2024-06-25 13:27] VITALS: O2SAT 99
[2024-06-25 13:30] VITALS: BP 145/87; PULSE 103; RESP 16; TEMP 97.9; O2SAT 99
[2024-06-25] MEDS ORDERED: HYDROCODONE/ACETAMINOPHEN 10/325MG TABLET PO ONE (15:30)
[2024-06-25 15:42] LABS: EOSINOPHILS % 5.6 % (0.0-5.0); HEMATOCRIT. 41.6 % (42.0-52.0); HEMOGLOBIN. 13.5 g/dL (14.0-18.0); MEAN CORPUSCULAR HEMOGLOBIN 26.6 pg (28.0-32.0); MEAN CORPUSCULAR HGB CONC 32.5 g/dL (31.0-37.0); MEAN CORPUSCULAR VOLUME 81.8 fL (80.0-94.0); MEAN PLATELET VOLUME 8.3 fl (7.4-10.4); MONOCYTES % 8.9 % (2.0-8.0); NEUTROPHILS % 54.5 % (40.0-76.0); PLATELET 259 x1000/uL (130-400); RED BLOOD CELL COUNT 5.09 mill/uL (4.7-6.1); RED CELL DISTRIBUTION WIDTH 14.2 % (11.6-14.6); WHITE BLOOD COUNT 4.7 x1000/uL (4.5-11.0)
[2024-06-25 15:47] LABS: CHLORIDE 108 mEq/L (98-107); POTASSIUM 4.2 mEq/L (3.5-5.1); SODIUM 141 mEq/L (136-145)
[2024-06-25 15:48] LABS: CARBON DIOXIDE 28 mEq/L (21-32)
[2024-06-25 15:50] LABS: CLARITY URINE CLEAR (CLEAR); COLOR URINE YELLOW (YELLOW); GLUCOSE URINE NEGATIVE (NEGATIVE); KETONES URINE NEGATIVE (NEGATIVE); LEUKOCYTE ESTERASE URINE NEGATIVE (NEGATIVE); NITRITE URINE NEGATIVE (NEGATIVE); OCCULT BLOOD URINE NEGATIVE (NEGATIVE); PH URINE 5.5 (4.5-8.0); PROTEIN URINE 1+ (NEGATIVE); SPECIFIC GRAVITY URINE 1.021 (1.005-1.030)
[2024-06-25 15:53] LABS: CREATININE 0.8 mg/dL (0.6-1.3)
[2024-06-25 15:54] LABS: GLUCOSE 94 mg/dL (70-105); UREA NITROGEN BLOOD 14 mg/dL (9-23)
[2024-06-25 16:27] LABS: BACTERIA URINE NONE SEEN; RBC URINE NONE SEEN /hpf (0-2); SQUAMOUS EPITHELIAL CELL URINE RARE /lpf (RARE/1+); WBC URINE 0-2 /hpf (0-2)
== END 2024-06-25 18:31 | disposition left against medical advice (07) ==
LOC: ER 13:24 → CANBEDREQ 18:29 → ER 18:31
DX: M54.50 Low back pain, unspecified (principal); M41.9 Scoliosis, unspecified; I10 Essential (primary) hypertension; F20.9 Schizophrenia, unspecified; E11.9 Type 2 diabetes mellitus without complications; Z88.0 Allergy status to penicillin; Z79.899 Other long term (current) drug therapy; Z79.84 Long term (current) use of oral hypoglycemic drugs
CPT/HCPCS: 36415; 80048; 81003; 85025; 99283

== ENCOUNTER 2024-09-14 12:59 | Emergency (ER) | payer OTHER, MEDICAID ==
[~2024-09-14] VITALS: Ht 180.3 cm; Wt 72.6 kg
[2024-09-14 13:02] VITALS: O2SAT 98
[2024-09-14 13:03] VITALS: TEMP 37.1; O2SAT 98
[2024-09-14 16:07] VITALS: BP 136/87; PULSE 88; RESP 16
[2024-09-14] MEDS: KETOROLAC 30MG/ML VIAL IM ONE (16:07)
[2024-09-14] MEDS ORDERED: NAPR-681 PO (16:37)
[2024-09-14] MEDS ORDERED: DICL100G58 TP (16:37)
== END 2024-09-14 17:13 | disposition home or self-care (01) ==
LOC: ER 12:59
DX: M17.12 Unilateral primary osteoarthritis, left knee (principal); J44.9 Chronic obstructive pulmonary disease, unspecified; E11.9 Type 2 diabetes mellitus without complications; F20.9 Schizophrenia, unspecified; I10 Essential (primary) hypertension; Z86.73 Personal history of transient ischemic attack (TIA), and cerebral infarction without residual deficits; Z79.899 Other long term (current) drug therapy; Z88.0 Allergy status to penicillin; Z98.890 Other specified postprocedural states
CPT/HCPCS: 99283; 73562; 96372; J1885

== ENCOUNTER 2024-12-27 03:53 | Inpatient (IN) | payer OTHER, MEDICAID ==
[~2024-12-27] VITALS: Ht 180.3 cm; Wt 68.9 kg
[~2024-12-27 03:53] MED LIST changes: +DICL100G58 TP
[2024-12-27 03:59] VITALS: O2SAT 95
[2024-12-27 04:41] LABS: BASOPHILS % 1.3 % (0.0-2.0); EOSINOPHILS % 4.5 % (0.0-5.0); HEMATOCRIT. 39.5 % (42.0-52.0); HEMOGLOBIN. 12.5 g/dL (14.0-18.0); LYMPHOCYTES % 22.5 % (20.0-50.0); MEAN CORPUSCULAR HEMOGLOBIN 25.9 pg (28.0-32.0); MEAN CORPUSCULAR HGB CONC 31.7 g/dL (31.0-37.0); MEAN CORPUSCULAR VOLUME 81.8 fL (80.0-94.0); MEAN PLATELET VOLUME 7.6 fl (7.4-10.4); NEUTROPHILS % 62.7 % (40.0-76.0); PLATELET 294 x1000/uL (130-400); RED BLOOD CELL COUNT 4.83 mill/uL (4.7-6.1); RED CELL DISTRIBUTION WIDTH 14.4 % (11.6-14.6); WHITE BLOOD COUNT 3.7 x1000/uL (4.5-11.0)
[2024-12-27 04:59] LABS: PROTHROMBIN TIME 10.7 sec (9.6-11.0)
[2024-12-27 05:17] LABS: CHLORIDE 105 mEq/L (98-107); POTASSIUM 4.1 mEq/L (3.5-5.1); SODIUM 140 mEq/L (136-145)
[2024-12-27 05:18] LABS: CALCIUM 10.5 mg/dL (8.7-10.4); CARBON DIOXIDE 28 mEq/L (21-32)
[2024-12-27 05:23] LABS: CREATININE 0.8 mg/dL (0.6-1.3); GLUCOSE 110 mg/dL (70-105); UREA NITROGEN BLOOD 10 mg/dL (9-23)
[2024-12-27 05:25] LABS: ALANINE AMINOTRANSFERASE 16 IU/L (10-49); ALBUMIN 4.6 g/dL (3.2-4.8); ASPARTATE AMINOTRANSFERASE 21 IU/L (<34); BILIRUBIN DIRECT < 0.1 mg/dL (<=3.0)
[2024-12-27 05:26] LABS: BILIRUBIN TOTAL 0.3 mg/dL (0.1-1.0); PROTEIN TOTAL 7.1 g/dL (6.0-8.3)
[2024-12-27] MEDS ORDERED: HYDRALAZINE 20MG/ML VIAL IV ONE (05:30)
[2024-12-27 05:34] LABS: ETHANOL BLOOD < 10 mg/dL (<10)
[2024-12-27] MEDS: ACETAMINOPHEN 1000MG/100ML 100 ML IV NR (05:39)
[2024-12-27] MEDS: KETOROLAC 15MG/ML VIAL IV NR (06:06)
[2024-12-27] MEDS: MORPHINE SULFATE 4 MG/ML INJ (FOR IV/IM USE) IV ONE (06:47)
[2024-12-27] MEDS: METHOCARBAMOL 500MG TABLET PO ONE (08:28)
[2024-12-27] MEDS: HYDROMORPHONE HCL/PF 1MG/ML INJ IV SCH (08:45)
[2024-12-27] MEDS ORDERED: HYDROMORPHONE HCL/PF 2MG/ML INJ IV SCH (09:00)
[2024-12-27 09:02] LABS: CLARITY URINE CLEAR (CLEAR); COLOR URINE YELLOW (YELLOW); GLUCOSE URINE NEGATIVE (NEGATIVE); KETONES URINE 1+ (NEGATIVE); LEUKOCYTE ESTERASE URINE NEGATIVE (NEGATIVE); NITRITE URINE NEGATIVE (NEGATIVE); OCCULT BLOOD URINE NEGATIVE (NEGATIVE); PH URINE 7.5 (4.5-8.0); PROTEIN URINE 1+ (NEGATIVE); SPECIFIC GRAVITY URINE 1.019 (1.005-1.030); UROBILINOGEN URINE 0.2 E.U./dL (0.2-1.0)
[2024-12-27 09:21] LABS: *AMPHETAMINES SCREEN URINE NEGATIVE (NEGATIVE); *BARBITURATES SCREEN URINE NEGATIVE (NEGATIVE); *BENZODIAZEPINES SCREEN URINE NEGATIVE (NEGATIVE); *COCAINE SCREEN URINE NEGATIVE (NEGATIVE)
[2024-12-27 09:22] LABS: CANNABINOID URINE SCREEN NEGATIVE (NEGATIVE); ECSTASY MDMA SCREEN URINE NEGATIVE (NEGATIVE); METHADONE URINE SCREEN NEGATIVE (NEGATIVE); OPIATES URINE SCREEN PRESUMPTIVE POSITIVE (NEGATIVE); PHENCYCLIDINE URINE SCREEN NEGATIVE (NEGATIVE)
[2024-12-27 09:53] LABS: SQUAMOUS EPITHELIAL CELL URINE FEW /lpf (RARE/1+)
[2024-12-27 09:54] LABS: BACTERIA URINE TRACE
[2024-12-27 09:55] LABS: MUCUS URINE TRACE /lpf (NONE/TRACE); RBC URINE NONE SEEN /hpf (0-2); WBC URINE 0-2 /hpf (0-2)
[2024-12-27 10:44] VITALS: BP 139/78; PULSE 99; RESP 20; TEMP 36.7; O2SAT 98
[2024-12-27] MEDS: HYDROMORPHONE HCL/PF 2MG/ML INJ IV ONE (11:13)
[2024-12-27 12:00] VITALS: BP 139/78; PULSE 94; RESP 21; TEMP 36.7; O2SAT 98
[2024-12-27] MEDS ORDERED: HYDRALAZINE 20MG/ML VIAL IV PRN (13:00)
[2024-12-27] MEDS ORDERED: ONDANSETRON HCL 4MG/2ML INJ IV PRN (13:00)
[2024-12-27] MEDS ORDERED: DEXTROSE 50% WATER 50ML SYRINGE IV PRN (13:00)
[2024-12-27] MEDS ORDERED: ACETAMINOPHEN 325MG TABLET PO PRN (13:00)
[2024-12-27] MEDS ORDERED: HYDRALAZINE 10 MG in SODIUM CHLORIDE 0.9% 49.5 ML IV PRN (13:00)
[2024-12-27] MEDS ORDERED: IPRATROPIUM/ALBUTEROL 0.5-3(2.5)MG/3ML NEB HHN PRN (13:00)
[2024-12-27] MEDS ORDERED: BUPR1FIL SL (14:08)
[2024-12-27] MEDS: POLYETHYLENE GLYCOL 3350 (17GM) 1 DOSE PACK PO SCH (14:29)
[2024-12-27 16:00] VITALS: BP 170/85; PULSE 107; RESP 22; TEMP 36.6; O2SAT 98
[2024-12-27 16:16] VITALS: BP 139/78; PULSE 99; RESP 20; TEMP 36.7
[2024-12-27] MEDS: INSULIN LISPRO 100 UNITS/ML SUBCUT SCH (16:43)
[2024-12-27] MEDS: BLOOD SUGAR DIAGNOSTIC STRIP TEST SCH (16:43)
[2024-12-27] MEDS: NICOTINE 21MG PATCH TD SCH (19:38)
[2024-12-27] MEDS: LACTULOSE 20G/30ML UDC PO SCH (19:38)
[2024-12-27 20:00] VITALS: BP 152/90; PULSE 86; RESP 18; TEMP 36.9; O2SAT 95
[2024-12-27] MEDS: DIVALPROEX SODIUM 500MG DR TABLET PO SCH (20:49)
[2024-12-27] MEDS: QUETIAPINE FUMARATE 25MG TABLET PO SCH (20:49)
[2024-12-27] MEDS: MELATONIN 3MG TABLET PO SCH (20:50)
[2024-12-27] MEDS ORDERED: MELATONIN 10 MG MT SCH (21:00)
[2024-12-27] MEDS: SENNOSIDES 8.6MG TABLET PO PRN (22:49)
[2024-12-28] VITALS: BP 156/84; PULSE 80; RESP 18; TEMP 36.8; O2SAT 100
[2024-12-28] MEDS: HYDROCODONE/ACETAMINOPHEN 5/325MG TABLET PO PRN (03:32)
[2024-12-28 04:00] VITALS: BP 151/85; PULSE 78; RESP 18; TEMP 37; O2SAT 97
[2024-12-28 07:34] LABS: CHLORIDE 99 mEq/L (98-107); POTASSIUM 4.1 mEq/L (3.5-5.1); SODIUM 136 mEq/L (136-145)
[2024-12-28 07:35] LABS: CARBON DIOXIDE 29 mEq/L (21-32)
[2024-12-28 07:40] LABS: CREATININE 0.7 mg/dL (0.6-1.3); GLUCOSE 98 mg/dL (70-105)
[2024-12-28 07:41] LABS: UREA NITROGEN BLOOD 14 mg/dL (9-23)
[2024-12-28 07:53] LABS: BASOPHILS % 0.8 % (0.0-2.0); EOSINOPHILS % 1.4 % (0.0-5.0); HEMATOCRIT. 38.7 % (42.0-52.0); HEMOGLOBIN. 12.6 g/dL (14.0-18.0); LYMPHOCYTES % 19.8 % (20.0-50.0); MEAN CORPUSCULAR HEMOGLOBIN 26.2 pg (28.0-32.0); MEAN CORPUSCULAR HGB CONC 32.5 g/dL (31.0-37.0); MEAN CORPUSCULAR VOLUME 80.7 fL (80.0-94.0); MEAN PLATELET VOLUME 7.9 fl (7.4-10.4); MONOCYTES % 11.1 % (2.0-8.0); NEUTROPHILS % 66.9 % (40.0-76.0); PLATELET 301 x1000/uL (130-400); RED CELL DISTRIBUTION WIDTH 14.2 % (11.6-14.6); WHITE BLOOD COUNT 4.4 x1000/uL (4.5-11.0)
[2024-12-28 08:00] VITALS: BP 138/89; PULSE 78; RESP 20; TEMP 36.7; O2SAT 98
[2024-12-28] MEDS: BUPRENORPHINE 2MG SL TABLET SL SCH (09:00)
[2024-12-28] MEDS: PANTOPRAZOLE SODIUM 40 MG/VIAL IV SCH (09:14)
[2024-12-28] MEDS: HYDROCHLOROTHIAZIDE 25MG TABLET PO SCH (09:15)
[2024-12-28 12:00] VITALS: BP 142/84; PULSE 82; RESP 19; TEMP 36.1; O2SAT 98
[2024-12-28 14:16] VITALS: BP 142/84; PULSE 82; RESP 19
== END 2024-12-28 17:15 | disposition left against medical advice (07) | DRG 390 ==
LOC: ER 03:53 → 7EST 09:31 → EDBEDREQSVC 09:33 → EDBEDREQ 09:33
PROVIDERS: ADMIT Internal Medicine; ATTEND Internal Medicine
DX: K56.41 Fecal impaction (principal); E11.9 Type 2 diabetes mellitus without complications; I10 Essential (primary) hypertension; J44.9 Chronic obstructive pulmonary disease, unspecified; I25.10 Atherosclerotic heart disease of native coronary artery without angina pectoris; F17.210 Nicotine dependence, cigarettes, uncomplicated; F20.9 Schizophrenia, unspecified; Z86.73 Personal history of transient ischemic attack (TIA), and cerebral infarction without residual deficits; Z88.0 Allergy status to penicillin; Z88.8 Allergy status to other drugs, medicaments and biological substances
CPT/HCPCS: 36415; 74176; 80048; 80076; 80305; 80320; 81003; 82962; 83036; 85025; 99285; A4606; A6449; J1171; J1885; J2270; J2405; J2470; G0480; J0131

== ENCOUNTER 2025-01-09 17:16 | Emergency (ER) | payer OTHER, MEDICAID ==
[~2025-01-09] VITALS: Ht 165.1 cm; Wt 63.0 kg
[~2025-01-09 17:16] MED LIST changes: +BUPR1FIL SL
[2025-01-09 17:19] VITALS: RESP 16; O2SAT 99
[2025-01-09 18:53] LABS: BASOPHILS % 1.3 % (0.0-2.0); EOSINOPHILS % 8.7 % (0.0-5.0); HEMATOCRIT. 36.9 % (42.0-52.0); HEMOGLOBIN. 11.8 g/dL (14.0-18.0); LYMPHOCYTES % 28.9 % (20.0-50.0); MEAN PLATELET VOLUME 7.5 fl (7.4-10.4); MONOCYTES % 9.8 % (2.0-8.0); NEUTROPHILS % 51.3 % (40.0-76.0); PLATELET 321 x1000/uL (130-400); RED BLOOD CELL COUNT 4.58 mill/uL (4.7-6.1); RED CELL DISTRIBUTION WIDTH 14.0 % (11.6-14.6)
[2025-01-09 19:05] LABS: CREATININE 0.8 mg/dL (0.6-1.3); UREA NITROGEN BLOOD 14 mg/dL (9-23)
[2025-01-09 19:06] LABS: TROPONIN I HIGH SENSITIVITY < 4 ng/L (3.0-53)
[2025-01-09] MEDS ORDERED: DIPH25CA83 MT (19:36)
[2025-01-09] MEDS ORDERED: IBUP-2029 MT (19:36)
[2025-01-09 19:59] VITALS: BP 157/86; PULSE 82; TEMP 37; O2SAT 98
== END 2025-01-09 20:01 | disposition home or self-care (01) ==
LOC: ER 17:16
DX: R42 Dizziness and giddiness (principal); R53.1 Weakness; E11.9 Type 2 diabetes mellitus without complications; I10 Essential (primary) hypertension; Z79.84 Long term (current) use of oral hypoglycemic drugs; Z79.899 Other long term (current) drug therapy; Z88.0 Allergy status to penicillin
CPT/HCPCS: 36415; 80048; 84484; 85025; 93005; 99284

== ENCOUNTER 2025-02-01 00:03 | Inpatient (IN) | payer OTHER, MEDICAID ==
[~2025-02-01] VITALS: Ht 180.3 cm; Wt 73.9 kg
[~2025-02-01 00:03] MED LIST changes: +DIPH25CA83 MT; +IBUP-2029 MT
[2025-02-01 00:53] LABS: BASOPHILS % 1.3 % (0.0-2.0); EOSINOPHILS % 6.5 % (0.0-5.0); HEMATOCRIT. 36.4 % (42.0-52.0); HEMOGLOBIN. 11.8 g/dL (14.0-18.0); LYMPHOCYTES % 23.3 % (20.0-50.0); MEAN PLATELET VOLUME 7.6 fl (7.4-10.4); MONOCYTES % 8.0 % (2.0-8.0); NEUTROPHILS % 60.9 % (40.0-76.0); PLATELET 295 x1000/uL (130-400); RED BLOOD CELL COUNT 4.54 mill/uL (4.7-6.1); RED CELL DISTRIBUTION WIDTH 14.7 % (11.6-14.6)
[2025-02-01 01:08] LABS: CREATININE 0.8 mg/dL (0.6-1.3); UREA NITROGEN BLOOD 13 mg/dL (9-23)
[2025-02-01 01:09] LABS: TROPONIN I HIGH SENSITIVITY < 4 ng/L (3.0-53)
[2025-02-01] MEDS: ASPIRIN 325MG TABLET PO NR (01:49)
[2025-02-01] MEDS: IPRATROPIUM BROMIDE (0.02%) 0.5MG/2.5ML NEB HHN ONE (01:59)
[2025-02-01 02:00] VITALS: PULSE 80; RESP 18; O2SAT 98
[2025-02-01] MEDS: ALBUTEROL (0.083%) 2.5MG/3ML NEB HHN ONE (02:00)
[2025-02-01 04:20] VITALS: BP_SYST 167; BP_SYST 178; BP_DIAS 119; BP_DIAS 92; PULSE 81; PULSE 89; RESP 16; RESP 20; TEMP 36.4; TEMP 36.418; O2SAT 92
[2025-02-01] MEDS ORDERED: HYDROCODONE/ACETAMINOPHEN 5/325MG TABLET PO PRN (06:15)
[2025-02-01] MEDS ORDERED: IPRATROPIUM/ALBUTEROL 0.5-3(2.5)MG/3ML NEB HHN PRN (06:15)
[2025-02-01] MEDS ORDERED: DIPHENHYDRAMINE 50MG/ML VIAL IV PRN (06:30)
[2025-02-01] MEDS ORDERED: BENZONATATE 100MG CAPSULE PO PRN (06:30)
[2025-02-01 06:33] LABS: CLARITY URINE CLEAR (CLEAR); COLOR URINE YELLOW (YELLOW); GLUCOSE URINE NEGATIVE (NEGATIVE); KETONES URINE NEGATIVE (NEGATIVE); LEUKOCYTE ESTERASE URINE NEGATIVE (NEGATIVE); NITRITE URINE NEGATIVE (NEGATIVE); OCCULT BLOOD URINE NEGATIVE (NEGATIVE); PH URINE 7.0 (4.5-8.0); PROTEIN URINE NEGATIVE (NEGATIVE); SPECIFIC GRAVITY URINE 1.010 (1.005-1.030); UROBILINOGEN URINE 0.2 E.U./dL (0.2-1.0)
[2025-02-01] MEDS ORDERED: NALOXONE HCL 0.4MG/ML VIAL IV PRN (06:45)
[2025-02-01] MEDS: METOPROLOL TARTRATE 50MG TABLET PO SCH (06:47)
[2025-02-01 06:58] LABS: *AMPHETAMINES SCREEN URINE NEGATIVE (NEGATIVE); *BARBITURATES SCREEN URINE NEGATIVE (NEGATIVE); *BENZODIAZEPINES SCREEN URINE NEGATIVE (NEGATIVE); *COCAINE SCREEN URINE NEGATIVE (NEGATIVE)
[2025-02-01 06:59] LABS: CANNABINOID URINE SCREEN NEGATIVE (NEGATIVE); ECSTASY MDMA SCREEN URINE NEGATIVE (NEGATIVE); METHADONE URINE SCREEN NEGATIVE (NEGATIVE); OPIATES URINE SCREEN NEGATIVE (NEGATIVE); PHENCYCLIDINE URINE SCREEN NEGATIVE (NEGATIVE)
[2025-02-01] MEDS ORDERED: DEXTROSE 50% WATER 50ML SYRINGE IV PRN (07:15)
[2025-02-01 08:00] VITALS: BP 136/88; PULSE 89; RESP 19; TEMP 36.8; O2SAT 96
[2025-02-01 08:20] LABS: LDL CHOLESTEROL 134.0 mg/dL (5-100); TRIGLYCERIDE 78.0 mg/dL (0-150)
[2025-02-01 08:24] LABS: T4 FREE 0.89 ng/dL (0.89-1.76)
[2025-02-01] MEDS ORDERED: ASPIRIN 81MG TABLET PO SCH (09:00)
[2025-02-01] MEDS ORDERED: REGADENOSON 0.4 MG/5 ML IV SCH (09:00)
[2025-02-01] MEDS ORDERED: METOPROLOL TARTRATE 5MG/5ML VIAL IV PRN (09:00)
[2025-02-01] MEDS: DOCUSATE SODIUM SUGAR FREE 100MG/10ML UDC NG SCH (09:00)
[2025-02-01] MEDS: ASPIRIN 81MG TABLET PO SCH (09:04)
[2025-02-01] MEDS: LOSARTAN 50 MG TABLET PO SCH (09:05)
[2025-02-01] MEDS: HYDROCHLOROTHIAZIDE 25MG TABLET PO SCH (09:05)
[2025-02-01] MEDS: DIVALPROEX SODIUM 500MG DR TABLET PO SCH (09:05)
[2025-02-01] MEDS: INSULIN LISPRO 100 UNITS/ML SUBCUT SCH (09:15)
[2025-02-01] MEDS: ISOSORBIDE MONONITRATE 30MG TABLET SR 24HR PO SCH (11:00)
[2025-02-01] MEDS: BLOOD SUGAR DIAGNOSTIC STRIP TEST SCH (11:50)
[2025-02-01 12:00] VITALS: BP 143/91; PULSE 69; RESP 17; TEMP 36.9; O2SAT 96
[2025-02-01 16:00] VITALS: BP 120/82; PULSE 67; RESP 15; TEMP 36.8; O2SAT 97
[2025-02-01 20:00] VITALS: BP 132/69; PULSE 69; RESP 14; TEMP 37; O2SAT 98
[2025-02-01] MEDS: ATORVASTATIN CALCIUM 40MG TABLET PO SCH (20:37)
[2025-02-01] MEDS: QUETIAPINE FUMARATE 25MG TABLET PO SCH (20:37)
[2025-02-01] MEDS: MELATONIN 3MG TABLET PO SCH (20:37)
[2025-02-01] MEDS ORDERED: MELATONIN 10 MG MT SCH (21:00)
[2025-02-01] MEDS ORDERED: QUETIAPINE FUMARATE 50MG TABLET PO SCH (21:00)
[2025-02-02] VITALS: PULSE 66; RESP 17; O2SAT 97
[2025-02-02 04:00] VITALS: BP 149/83; RESP 14; TEMP 36.4; O2SAT 93
[2025-02-02 07:18] LABS: BASOPHILS % 1.4 % (0.0-2.0); EOSINOPHILS % 14.8 % (0.0-5.0); HEMATOCRIT. 36.5 % (42.0-52.0); HEMOGLOBIN. 12.3 g/dL (14.0-18.0); LYMPHOCYTES % 37.7 % (20.0-50.0); MEAN PLATELET VOLUME 7.6 fl (7.4-10.4); MONOCYTES % 9.3 % (2.0-8.0); NEUTROPHILS % 36.8 % (40.0-76.0); PLATELET 292 x1000/uL (130-400); RED BLOOD CELL COUNT 4.67 mill/uL (4.7-6.1); RED CELL DISTRIBUTION WIDTH 14.2 % (11.6-14.6)
[2025-02-02 07:25] LABS: CREATININE 0.7 mg/dL (0.6-1.3); UREA NITROGEN BLOOD 15 mg/dL (9-23)
[2025-02-02 08:00] VITALS: BP 121/76; PULSE 68; RESP 18; TEMP 36.6; O2SAT 94
[2025-02-02] MEDS ORDERED: REGADENOSON 0.4 MG/5 ML IV ONE (09:42)
[2025-02-02 12:00] VITALS: BP 131/93; PULSE 64; RESP 21; TEMP 36.6; O2SAT 99
[2025-02-02] MEDS: NICOTINE 14MG PATCH TD SCH (12:25)
[2025-02-02 16:00] VITALS: PULSE 74; RESP 16; TEMP 36.9
[2025-02-02 20:00] VITALS: BP 123/83; PULSE 79; RESP 18; O2SAT 94
[2025-02-03] VITALS: BP 129/72; PULSE 82; RESP 16; TEMP 36.7; O2SAT 95
[2025-02-03 04:00] VITALS: BP 113/73; PULSE 83; RESP 22; TEMP 36.7; O2SAT 95
[2025-02-03] MEDS: LACTULOSE 20G/30ML UDC PO PRN (08:27)
[2025-02-03 10:33] VITALS: BP 121/79; PULSE 73; TEMP 97.6; O2SAT 94
[2025-02-03] MEDS ORDERED: NICOTINE 14MG PATCH TD SCH (11:30)
== END 2025-02-03 13:02 | disposition home or self-care (01) | DRG 313 ==
LOC: ER 00:03 → 3WST 03:04 → EDBEDREQ 03:06 → EDBEDREQTM 03:06 → ENRESERV 03:56
PROVIDERS: ADMIT Internal Medicine; ATTEND Internal Medicine
DX: R07.89 Other chest pain (principal); Z59.00 Homelessness unspecified; J44.0 Chronic obstructive pulmonary disease with (acute) lower respiratory infection; K21.9 Gastro-esophageal reflux disease without esophagitis; E11.9 Type 2 diabetes mellitus without complications; I10 Essential (primary) hypertension; F17.200 Nicotine dependence, unspecified, uncomplicated
CPT/HCPCS: 31720; 36415; 71045; 78452; 80048; 80061; 80305; 81003; 82962; 83036; 84439; 84443; 84484; 85025; 93005; 93017; 93306; 94070; 94640; 94760; 98960; 99285; A4606; A9500; J1815; J2785